=== PATIENT | female | born 1945 | race Caucasian/White ===

== ENCOUNTER 2016-12-21 14:13 | Inpatient (IN) | payer MEDICARE ==
[~2016-12-21] VITALS: Ht 167.6 cm; Wt 70.3 kg
[~2016-12-21 14:13] MED LIST: ACET-2605 PO; ACET-73 PO; ASPI-612 PO; BACL20TA PO; BIOTENE; BISA10SU21 RC; BUSP15TA3 PO; CALC-822 PO; CALMOSEPTINE OINT TOP; CRAN405C PO; DIPH25TA62 PO; DOCU100T PO; DULO60CA45 PO; HYDR-552 PO; HYDR28CR28 TP; LOPE2CAP PO; LORA0.5T PO; MEMA28CA PO; ORAJEL TOP; OXYB10TA4 PO; PHEN-705 PO; POLY17PO4 PO; POLY30DR EACHEYE; PREG100C PO; PREVIDENT; SELENIUM SULFIDE; SERT50TA12 PO; SIMV20TA6 PO; VOLTAREN 1% GEL TOP; [UNRECOGNIZED DRUG - OTHER] TOP
[2016-12-21] MEDS ORDERED: ACETAMINOPHEN 650 MG/20.3 ML LIQUID UDC PO ONE (14:45)
[2016-12-21] MEDS ORDERED: IV NORMAL SALINE 1000 ML BAG IV ONE (14:45)
[2016-12-21] MEDS ORDERED: CEFTRIAXONE 2 G in IV DEXTROSE 5% 100 ML IV ONE (14:45)
[2016-12-21] MEDS ORDERED: CEFTRIAXONE 1 G VIAL ONE (14:53)
[2016-12-21] MEDS ORDERED: ACETAMINOPHEN 650 MG/20.3 ML LIQUID UDC ONE (14:53)
[2016-12-21] MEDS ORDERED: [UNRECOGNIZED DRUG - CODE] PO (14:54)
[2016-12-21] MEDS ORDERED: GLY/85CR TP (14:54)
[2016-12-21] MEDS ORDERED: [UNRECOGNIZED DRUG - SUPPLY] TP (14:54)
[2016-12-21] MEDS ORDERED: HYDR28.316 RC (14:54)
[2016-12-21] MEDS ORDERED: METO25TA6 PO (14:54)
[2016-12-21] MEDS ORDERED: [UNRECOGNIZED DRUG - CODE] TP (14:54)
[2016-12-21] MEDS ORDERED: DICL100G31 TP (14:54)
[2016-12-21] MEDS ORDERED: LACT-47 PO (14:54)
[2016-12-21] MEDS ORDERED: MENT71OI TP (14:54)
[2016-12-21] MEDS ORDERED: [UNRECOGNIZED DRUG - CODE] TP (14:54)
--- NOTE | 2016-12-21 15:04 | NUR ---
LABS/BLOOD CX'S/SALINE LOCK/FLUID BOLUS/EKG COMPLETED. PRESENTLY AT CT SCAN.
[2016-12-21 15:05] LABS: CALCIUM 9.3 mg/dL (8.5-10.1); CARBON DIOXIDE 29 mmol/L (21-32); CHLORIDE 93 mmol/L (98-107); GFR 122 mL/min (>60); GLUCOSE 121 mg/dL (74-106); POTASSIUM 4.1 mmol/L (3.5-5.1); SODIUM SERUM 130 mmol/L (136-145); UREA NITROGEN, BLOOD 7 mg/dL (7-18)
[2016-12-21 15:06] LABS: ETHANOL < 3 MG/DL (0-0)
[2016-12-21 15:07] LABS: BASOPHILS % (AUTO) 0.1 % (0.0-2.0); CREATININE 0.5 mg/dL (0.6-1.3); EOSINOPHILS # (AUTO) 0.3 K/uL (0.0-0.7); EOSINOPHILS % (AUTO) 3.6 % (0.0-7.0); HEMATOCRIT 33.9 % (31.2-41.9); HEMOGLOBIN 11.5 g/dL (10.9-14.3); LYMPHOCYTES # (AUTO) 0.6 K/uL (20.0-40.0); LYMPHOCYTES % (AUTO) 6.5 % (20.5-51.5); MEAN CORPUSCULAR HEMOGLOBIN 29.7 uug (24.7-32.8); MEAN CORPUSCULAR HGB CONC 34 g/dL (32.3-35.6); MONOCYTES # (AUTO) 0.7 K/uL (2.0-10.0); MONOCYTES % (AUTO) 7.9 % (0.0-11.0); NEUTROPHILS # (AUTO) 7.8 K/uL (1.8-8.9); NEUTROPHILS % (AUTO) 81.9 % (38.5-71.5); PLATELET COUNT (AUTO) 220 K/uL (179-408); RED BLOOD CELL COUNT(AUTO) 3.85 MIL/uL (3.63-4.92); RED CELL DISTRIBUTION WIDTH 13.5 % (12.3-17.7); WHITE BLOOD COUNT (AUTO) 9.4 K/uL (3.8-11.8)
[2016-12-21 15:11] LABS: ALANINE AMINOTRANSFERASE 22 U/L (14-59); ALBUMIN 3.6 g/dL (3.4-5.0); ALKALINE PHOSPHATASE 61 U/L (50-136); ASPARTATE AMINOTRANSFERASE 28 U/L (15-37); BILIRUBIN,DIRECT 0.1 mg/dL (0.0-0.2); BILIRUBIN,TOTAL 0.5 mg/dL (0.2-1.0); TOTAL PROTEIN, SERUM 7.6 g/dL (6.4-8.2)
[2016-12-21 15:12] LABS: ACETAMINOPHEN < 2.0 ug/mL (10-30)
[2016-12-21 15:13] LABS: TROPONIN I < 0.017 ng/mL (0.00-0.056)
[2016-12-21 15:18] LABS: LACTIC ACID 0.8 mmol/L (0.4-2.0)
[2016-12-21] MEDS ORDERED: AZITHROMYCIN IV 500 MG in IV DEXTROSE 5% 250 ML IV ONE (15:45)
[2016-12-21] MEDS ORDERED: ALBUTEROL SULFATE 2.5 MG/3 ML NEBU NEB ONE (15:45)
[2016-12-21] MEDS ORDERED: AZITHROMYCIN 500 MG VIAL IV ONE (15:53)
[2016-12-21] MEDS ORDERED: Z GUARD REMEDY PASTE 57 GM TUBE TOP PRN (16:00)
[2016-12-21] MEDS ORDERED: ONDANSETRON 4 MG/2 ML VIAL IV PRN (16:00)
[2016-12-21] MEDS ORDERED: HYDROCORTISONE 2.5 % RECTAL CREAM 28.35 GM TUBE RC PRN (16:00)
[2016-12-21] MEDS ORDERED: ACETAMINOPHEN 325 MG TABLET PO PRN (16:00)
[2016-12-21] MEDS ORDERED: BISACODYL 10 MG SUPP.RECT RC PRN (16:00)
[2016-12-21] MEDS ORDERED: ALBUTEROL SULFATE 2.5 MG/3 ML NEBU ONE (16:03)
[2016-12-21] MEDS ORDERED: POLYVINYL ALCOHOL OPHT DROPS 15 ML BOTTLE EACHEYE PRN (16:15)
--- NOTE | 2016-12-21 16:41 | NUR ---
MSE COMPLETED, SBAR REPORT TO TENZIN LAMB, BELONGINGS LIST/ADMIT ORDER/RESP TX'S,PATRICIA ADAMS, JAQUELINS COMPLETED. PT TO RM 205 VIA ONEL.
--- NOTE | 2016-12-21 16:45 | NUR ---
ADMITTED FROM [facility] VIA ER A 71 YO FEMALE WITH ADM DX OF PNEUMONIA, AMS, SEPSIS ACCOMPANIED BY FAMILY. AWAKE ALERT WITH SOME CONFUSION. SEEN AND EXAMINED BY MANUFACTURING TECHNOLOGIST WITH ORDERS
[2016-12-21] MEDS ORDERED: VITAMIN D3 PO SCH (17:00)
[2016-12-21] MEDS ORDERED: Medication Not On Formulary EA (Docusate Sodium (Dok TABLET) 100 MG) PO SCH (17:00)
[2016-12-21] MEDS ORDERED: [UNRECOGNIZED DRUG - OTHER] PO SCH (17:00)
[2016-12-21] MEDS ORDERED: CALCIUM CITRATE PO SCH (17:00)
[2016-12-21] MEDS: CEFTRIAXONE 1 G in IV DEXTROSE 5% 50 ML IV SCH (17:03)
--- NOTE | 2016-12-21 17:04 | NUR ---
ROCEPHIN GIVEN IN ER
[2016-12-21 17:15] VITALS: BP 89/59
[2016-12-21] MEDS ORDERED: HYDROCORTISONE 1% CREAM 30 GM TUBE TP PRN (17:30)
[2016-12-21] MEDS ORDERED: IPRATROPIUM BROMIDE 0.5 MG/2.5 ML NEBU NEB PRN (17:30)
[2016-12-21] MEDS ORDERED: ALBUTEROL SULFATE 2.5 MG/ 0.5 ML NEBU NEB PRN (17:30)
[2016-12-21] MEDS ORDERED: ALBUTEROL SULFATE 2.5 MG/3 ML NEBU NEB PRN (17:30)
[2016-12-21] MEDS: BACLOFEN 20 MG TABLET PO SCH (17:30)
[2016-12-21] MEDS: DULOXETINE 60 MG CAPSULE.DR PO SCH (17:30)
[2016-12-21] MEDS: PREGABALIN 100 MG CAPSULE PO SCH (17:30)
[2016-12-21] MEDS: busPIRone 10 MG TABLET PO SCH (17:30)
[2016-12-21 18:43] LABS: *BILIRUBIN,URIN NEGATIVE (NEGATIVE); *BLOOD, URINE NEGATIVE (NEGATIVE); *CLARITY,URINE CLOUDY (CLEAR); *COLOR,URINE YELLOW (YELLOW); *KETONES,URINE TRACE (NEGATIVE); *PROTEIN,URINE TRACE (NEGATIVE); LEUKOCYTE ESTERASE ,URINE 1+ (NEGATIVE); NITRITE, URINE NEGATIVE (NEGATIVE); UGLUCOSE NEGATIVE (NEGATIVE)
[2016-12-21 18:53] LABS: RBC,URINE 0-3 /HPF (0-3)
[2016-12-21 18:54] LABS: BACTERIA,URINE RARE /HPF (NONE SEEN); SQUAMOUS EPITHELIAL CELL,UR FEW /HPF (NONE SEEN)
[2016-12-21 18:55] LABS: URINE AMORPHOUS URATE MODERATE /HPF
[2016-12-21 18:59] LABS: *AMPHETAMINE, URINE NEGATIVE (NEGATIVE); *BARBITURATE, URINE NEGATIVE (NEGATIVE); *CANNABINOID, URINE NEGATIVE (NEGATIVE); *COCCAINE, URINE NEGATIVE (NEGATIVE); *OPIATE, URINE POSITIVE (NEGATIVE); *PHENCYCLIDINE SCREEN,URINE NEGATIVE (NEGATIVE)
[2016-12-21 19:00] VITALS: BP 94/59
[2016-12-21] MEDS: IV NS 1000 ML 1,000 ML IV PRN (20:19)
[2016-12-21] MEDS: CALCIUM CITRA-VITAMIN D 315 MG-250 UNITS TABLET PO SCH (20:39)
[2016-12-21] MEDS: SIMVASTATIN 20 MG TABLET PO SCH (20:39)
[2016-12-21] MEDS: DOCUSATE SODIUM 100 MG CAPSULE PO SCH (20:39)
[2016-12-21] MEDS ORDERED: METOPROLOL TARTRATE 25 MG TABLET PO SCH (21:00)
[2016-12-22 00:23] VITALS: BP 113/64
[2016-12-22 04:00] VITALS: BP 109/64
[2016-12-22] MEDS: PANTOPRAZOLE SODIUM 40 MG TABLET.DR PO SCH (06:32)
--- NOTE | 2016-12-22 06:42 | NUR ---
PT IN BED RESTING, SLEPT MOST SHIFT. STILL CONFUSED. LOPRESSOR HELD LAST NIGHT, BP LOW. IVF RUNNING. DVT PUMP ON. VILLAR INTACT DRAINING ROGELIO URINE. SAFETY MAINTAINED. BED ALARAM ON.
[2016-12-22 06:53] LABS: BASOPHILS % (AUTO) 0.4 % (0.0-2.0); EOSINOPHILS # (AUTO) 0.3 K/uL (0.0-0.7); EOSINOPHILS % (AUTO) 3.7 % (0.0-7.0); HEMATOCRIT 27.4 % (31.2-41.9); HEMOGLOBIN 9.4 g/dL (10.9-14.3); LYMPHOCYTES # (AUTO) 0.8 K/uL (20.0-40.0); LYMPHOCYTES % (AUTO) 10.2 % (20.5-51.5); MEAN CORPUSCULAR HEMOGLOBIN 30.5 uug (24.7-32.8); MEAN CORPUSCULAR HGB CONC 34 g/dL (32.3-35.6); MEAN CORPUSCULAR VOLUME 89.2 fL (75.5-95.3); MONOCYTES # (AUTO) 0.5 K/uL (2.0-10.0); MONOCYTES % (AUTO) 6.7 % (0.0-11.0); NEUTROPHILS # (AUTO) 6.2 K/uL (1.8-8.9); PLATELET COUNT (AUTO) 175 K/uL (179-408); RED BLOOD CELL COUNT(AUTO) 3.07 MIL/uL (3.63-4.92); RED CELL DISTRIBUTION WIDTH 13.7 % (12.3-17.7); WHITE BLOOD COUNT (AUTO) 7.8 K/uL (3.8-11.8)
--- NOTE | 2016-12-22 08:00 | NUR ---
RECEIVED PATIENT, PLEASANT/QUIET,MODERATE LEVEL GENERALIZED PAIN, CONTINUE WITH PAIN MANAGEMENT, NO S/S OF RESP. DISTRESS, WILL CONT. PLAN OF CARE.
[2016-12-22 08:11] LABS: THYROID STIMULATING HORMONE 0.348 mIU/mL (0.358-3.740)
[2016-12-22 08:54] LABS: ALANINE AMINOTRANSFERASE 15 U/L (14-59); ALBUMIN 2.7 g/dL (3.4-5.0); ALKALINE PHOSPHATASE 52 U/L (50-136); ASPARTATE AMINOTRANSFERASE 28 U/L (15-37); BILIRUBIN,TOTAL 0.4 mg/dL (0.2-1.0); CALCIUM 8.3 mg/dL (8.5-10.1); CARBON DIOXIDE 25 mmol/L (21-32); CHLORIDE 99 mmol/L (98-107); GFR > 130 mL/min (>60); GLUCOSE 109 mg/dL (74-106); MAGNESIUM 1.6 mg/dL (1.8-2.4); NT-PRO BNP 685 pg/mL (0-125); PHOSPHOROUS 3.2 mg/dL (2.5-4.9); POTASSIUM 3.9 mmol/L (3.5-5.1); SODIUM SERUM 132 mmol/L (136-145); UREA NITROGEN, BLOOD 4 mg/dL (7-18)
[2016-12-22] MEDS ORDERED: OXYBUTYNIN XL 5 MG TABSR PO SCH (09:00)
[2016-12-22 09:05] LABS: CREATININE 0.4 mg/dL (0.6-1.3)
[2016-12-22] MEDS: ASPIRIN 325 MG TABLET PO SCH (09:39)
[2016-12-22] MEDS: MIRALAX 17 GM POWD.PACK PO SCH (09:39)
[2016-12-22] MEDS: DOCUSATE SODIUM 100 MG CAPSULE PO SCH ×2 (09:39→21:12)
[2016-12-22] MEDS: CALCIUM CITRA-VITAMIN D 315 MG-250 UNITS TABLET PO SCH ×2 (09:40→21:14)
[2016-12-22] MEDS: DULOXETINE 60 MG CAPSULE.DR PO SCH ×2 (09:40→16:59)
[2016-12-22] MEDS: MEMANTINE HCL 10 MG TABLET PO SCH ×2 (09:40→21:12)
[2016-12-22] MEDS: PREGABALIN 100 MG CAPSULE PO SCH ×3 (09:40→16:59)
[2016-12-22] MEDS: SERTRALINE HCL 50 MG TABLET PO SCH (09:40)
[2016-12-22] MEDS: busPIRone 10 MG TABLET PO SCH ×2 (09:41→17:17)
[2016-12-22] MEDS: BACLOFEN 20 MG TABLET PO SCH ×3 (09:41→16:59)
[2016-12-22] MEDS: HYDROCODONE/APAP 5-325MG TABLET PO PRN (09:41)
[2016-12-22] MEDS ORDERED: MAGNESIUM SULFATE/D5W 100 ML IV SCH (09:45)
[2016-12-22] MEDS: IV NS 1000 ML 1,000 ML IV PRN (10:23)
[2016-12-22 10:27] LABS: IRON, SERUM 16 ug/dL (50-175)
--- NOTE | 2016-12-22 11:00 | NUR ---
SEEN BY PT, SEE NOTES
[2016-12-22 11:05] LABS: BAND % (MANUAL) 9 % (0-10); EOSINOPHILS % (MANUAL) 5 % (0-8); LYMPHOCYTES % (MANUAL) 13 % (20-40); MONOCYTES % (MANUAL) 8 % (2-10); NEUTROPHILS % (MANUAL) 65 % (42-75); PLATELET ESTIMATE ADEQUATE
[2016-12-22 11:06] LABS: HYPOCHROMASIA 1+; OVALOCYTES 1+
[2016-12-22 11:14] VITALS: BP 108/68
[2016-12-22 11:35] LABS: CHOLESTEROL 93 mg/dL (<200); HDL CHOLESTEROL 40 mg/dL (40-60); TRIGLYCERIDES 45 MG/DL (30-150)
--- NOTE | 2016-12-22 13:00 | NUR ---
SEEN BY HORSE STUD WORKER NOTED LOW MAG, REPLACEMENT GIVEN 1G IV.
[2016-12-22] MEDS: FERROUS SULFATE 325 MG TABEC PO SCH (13:39)
[2016-12-22 15:17] VITALS: BP 118/67
[2016-12-22] MEDS: LEVOFLOXACIN 500 MG/D5W 500 MG in PREMIXED 1 EACH IV SCH (16:59)
--- NOTE | 2016-12-22 17:59 | NUR ---
PATIENT PLEASANTLY CONFUSED, COOPERATIVE WITH MEDS, NO S/S OF SEVERE AGITATION, TALKING INCOHERENTLY, CONT. ATB, NO REACTION NOTED.
[2016-12-22 19:00] VITALS: BP 106/72
--- NOTE | 2016-12-22 19:35 | NUR ---
RECEIVED PT IN BED AWAKE AND ALERT, IN NO ACUTE DISTRESS. NO SOB NOTED/REPORTED, ON ROOM AIR. IV INTACT, IVF INFUSING ORDERED. F/C IN PLACE DRAINING WELL. MADE COMFORTABLE. CALL LIGHT IN REACH. SAFETY MEASURES IN PLACE. WILL IMPLEMENT PLAN OF CARE.
[2016-12-22] MEDS: SIMVASTATIN 20 MG TABLET PO SCH (21:12)
[2016-12-22] MEDS: LACTOBACILLUS RHAMNOSUS GG 1 EACH CAPSULE PO SCH (21:14)
[2016-12-22] MEDS: GUAIFENESIN/DEXTROMETHORPHAN 5 ML UDC PO PRN (21:21)
[2016-12-23] MEDS: GUAIFENESIN/DEXTROMETHORPHAN 5 ML UDC PO PRN ×2 (02:46→20:29)
[2016-12-23 04:00] VITALS: BP 111/65
[2016-12-23] MEDS: IV NS 1000 ML 1,000 ML IV PRN ×2 (04:13→23:47)
[2016-12-23] MEDS: HYDROCODONE/APAP 5-325MG TABLET PO PRN ×2 (04:14→23:50)
[2016-12-23] MEDS: PANTOPRAZOLE SODIUM 40 MG TABLET.DR PO SCH (06:29)
--- NOTE | 2016-12-23 06:49 | NUR ---
PT IN BED RESTING, SLEPT MOST SHIFT. ALERT TO SELF, PLACE AND TIME, BUT REMAINS CONFUSED AT TIMES AND TALKING INCOHERENTLY. ABLE TO MAKE NEEDS KNOWN. PRN NORCO GIVEN X1 THIS AM FOR C/O NECK AND L ARM PAIN. OCCASIONAL COUGHING NOTED, RUBITUSSIN PRN GIVEN WITH SOME RELIEF. IVF INFUSING AT 700CC/HR. DVT PUMPS ON. VILLAR INTACT DRAINING ROGELIO URINE. CALL LIGHT IN REACH AND SAFETY MAINTAINED. Addendum: 12/23/16 at 2116 by GUNNER BARRIOS RN INCORRECT INFO, ACTUALLY IVF INFUSING AT 70 CC/HR.
[2016-12-23 06:55] LABS: EOSINOPHILS # (AUTO) 0.3 K/uL (0.0-0.7); EOSINOPHILS % (AUTO) 4.1 % (0.0-7.0); HEMATOCRIT 26.5 % (37-47); HEMOGLOBIN 9.2 G/DL (12.0-16.0); LYMPHOCYTES # (AUTO) 0.8 K/uL (20.0-40.0); MEAN CORPUSCULAR HEMOGLOBIN 30.6 UUG (27.0-31.0); MEAN CORPUSCULAR HGB CONC 35 g/dL (32.0-37.0); MEAN CORPUSCULAR VOLUME 88.5 FL (81.0-99.0); MONOCYTES # (AUTO) 0.6 K/uL (2.0-10.0); MONOCYTES % (AUTO) 8.6 % (0.0-11.0); NEUTROPHILS # (AUTO) 5.8 K/uL (1.8-8.9); NEUTROPHILS % (AUTO) 76.3 % (38.5-71.5); PLATELET COUNT (AUTO) 197 K/UL (150-450); RED CELL DISTRIBUTION WIDTH 13.3 % (11.5-14.5); WHITE BLOOD COUNT (AUTO) 7.5 K/UL (4.0-11.2)
--- NOTE | 2016-12-23 06:55 | NUR ---
UNABLE TO COLLECT STOOL OB, NO BM PER SHIFT, WILL ENDORSE PERTINENT INFO AND CARE TO INCOMING NURSE.
[2016-12-23 06:58] LABS: ALANINE AMINOTRANSFERASE 13 U/L (14-59); ALBUMIN 2.6 g/dL (3.4-5.0); ALKALINE PHOSPHATASE 51 U/L (50-136); ASPARTATE AMINOTRANSFERASE 16 U/L (15-37); BILIRUBIN,TOTAL 0.4 mg/dL (0.2-1.0); CALCIUM 8.4 mg/dL (8.5-10.1); CARBON DIOXIDE 26 mmol/L (21-32); CHLORIDE 101 mmol/L (98-107); GFR > 130 mL/min (>60); GLUCOSE 109 mg/dL (74-106); MAGNESIUM 1.6 mg/dL (1.8-2.4); PHOSPHOROUS 2.9 mg/dL (2.5-4.9); POTASSIUM 3.7 mmol/L (3.5-5.1); SODIUM SERUM 134 mmol/L (136-145); TOTAL PROTEIN, SERUM 5.9 g/dL (6.4-8.2); UREA NITROGEN, BLOOD 2 mg/dL (7-18)
[2016-12-23 06:59] LABS: CREATININE 0.4 mg/dL (0.6-1.3)
[2016-12-23 07:16] LABS: THYROID STIMULATING HORMONE 0.417 mIU/mL (0.358-3.740)
--- NOTE | 2016-12-23 07:47 | NUR ---
REMAINS VERY CONFUSED, TALKING INCOHERENTLY BUT NO SIGNS OF RESP DISTRESS, NO PAIN. CONTINUE WITH CURRENT TX PLAN
[2016-12-23] MEDS: DULOXETINE 60 MG CAPSULE.DR PO SCH ×2 (08:15→18:02)
[2016-12-23] MEDS: busPIRone 10 MG TABLET PO SCH ×2 (08:15→18:01)
[2016-12-23] MEDS: SERTRALINE HCL 50 MG TABLET PO SCH (08:15)
[2016-12-23] MEDS: MIRALAX 17 GM POWD.PACK PO SCH (08:15)
[2016-12-23] MEDS: ASPIRIN 325 MG TABLET PO SCH (08:16)
[2016-12-23] MEDS: PREGABALIN 100 MG CAPSULE PO SCH ×3 (08:16→18:04)
[2016-12-23] MEDS: DOCUSATE SODIUM 100 MG CAPSULE PO SCH ×2 (08:16→20:28)
[2016-12-23] MEDS: FERROUS SULFATE 325 MG TABEC PO SCH (08:16)
[2016-12-23] MEDS: BACLOFEN 20 MG TABLET PO SCH ×3 (08:16→18:02)
[2016-12-23] MEDS: LACTOBACILLUS RHAMNOSUS GG 1 EACH CAPSULE PO SCH ×2 (08:16→20:29)
[2016-12-23] MEDS: MEMANTINE HCL 10 MG TABLET PO SCH ×2 (08:16→20:29)
[2016-12-23] MEDS: CALCIUM CITRA-VITAMIN D 315 MG-250 UNITS TABLET PO SCH ×2 (08:16→20:28)
[2016-12-23 09:58] LABS: BAND % (MANUAL) 5 % (0-10); LYMPHOCYTES % (MANUAL) 14 % (20-40); MONOCYTES % (MANUAL) 8 % (2-10); NEUTROPHILS % (MANUAL) 73 % (42-75); PLATELET ESTIMATE ADEQUATE
[2016-12-23 09:59] LABS: HYPOCHROMASIA 1+
[2016-12-23] MEDS ORDERED: MAGNESIUM SULFATE/D5W 100 ML IV SCH (10:45)
[2016-12-23 11:39] VITALS: BP 105/60
--- NOTE | 2016-12-23 12:00 | NUR ---
no acute change
[2016-12-23] MEDS ORDERED: MORPHINE SULFATE 2 MG/1 ML DISP.SYRIN IV PRN (14:15)
[2016-12-23] MEDS: CEFTRIAXONE 1 G in IV DEXTROSE 5% 50 ML IV SCH (14:53)
[2016-12-23 15:08] VITALS: BP 130/72
[2016-12-23] MEDS: LEVOFLOXACIN 500 MG/D5W 500 MG in PREMIXED 1 EACH IV SCH (15:45)
--- NOTE | 2016-12-23 18:29 | NUR ---
CONTINUE ANTIBIOTIC MANAGEMENT. NO SOB. CONTINUE WITH PAIN MANAGEMENT.
[2016-12-23 20:00] VITALS: BP 123/72
[2016-12-23] MEDS: SIMVASTATIN 20 MG TABLET PO SCH (20:29)
--- NOTE | 2016-12-24 05:28 | NUR ---
PATIENT IN BED RESTING, SLEEPING ON AND OFF. CONTINUES WITH CIRCUMSTANTIAL SPEECH. ABLE TO MAKE NEEDS KNOWN. VS STABLE. C/O CONSTIPATION, PRN DULCOLAX GIVEN ORDERED, EFFECTIVE, X2 BMs AT THIS TIME. STOOL OB COLLECTED, SENT TO LAB. KEPT CLEAN AND DRY. ALL NEEDS ATTENDED. CALL LIGHT IN REACH. SAFETY MAINTAINED.
[2016-12-24 06:02] VITALS: BP 134/86
[2016-12-24] MEDS: PANTOPRAZOLE SODIUM 40 MG TABLET.DR PO SCH (06:29)
[2016-12-24 07:07] LABS: ALBUMIN 2.5 g/dL (3.4-5.0); BILIRUBIN,TOTAL 0.4 mg/dL (0.2-1.0); CALCIUM 8.5 mg/dL (8.5-10.1); CREATININE 0.6 mg/dL (0.6-1.3); MAGNESIUM 1.5 mg/dL (1.8-2.4); POTASSIUM 3.8 mmol/L (3.5-5.1); URIC ACID 1.3 mg/dL (2.6-6.0)
[2016-12-24] MEDS: PREGABALIN 100 MG CAPSULE PO SCH ×3 (08:20→16:24)
[2016-12-24] MEDS: FERROUS SULFATE 325 MG TABEC PO SCH (08:20)
[2016-12-24] MEDS: BACLOFEN 20 MG TABLET PO SCH ×3 (08:20→16:24)
[2016-12-24] MEDS: ASPIRIN 325 MG TABLET PO SCH (08:20)
[2016-12-24] MEDS: DULOXETINE 60 MG CAPSULE.DR PO SCH ×2 (08:20→16:24)
[2016-12-24] MEDS: DOCUSATE SODIUM 100 MG CAPSULE PO SCH ×2 (08:21→21:01)
[2016-12-24] MEDS: LACTOBACILLUS RHAMNOSUS GG 1 EACH CAPSULE PO SCH ×2 (08:21→21:01)
[2016-12-24] MEDS: MEMANTINE HCL 10 MG TABLET PO SCH ×2 (08:21→21:02)
[2016-12-24] MEDS: SERTRALINE HCL 50 MG TABLET PO SCH (08:21)
[2016-12-24] MEDS: CALCIUM CITRA-VITAMIN D 315 MG-250 UNITS TABLET PO SCH ×2 (08:21→21:01)
[2016-12-24] MEDS: busPIRone 10 MG TABLET PO SCH ×2 (08:21→16:24)
[2016-12-24] MEDS: MIRALAX 17 GM POWD.PACK PO SCH (08:22)
[2016-12-24] MEDS: MAGNESIUM SULFATE/D5W 100 ML IV SCH ×2 (10:09→10:49)
[2016-12-24 11:09] LABS: *OCCULT BLOOD STOOL NEGATIVE (NEGATIVE)
[2016-12-24 11:55] VITALS: BP 113/67
[2016-12-24] MEDS: IPRATROPIUM BROMIDE 0.5 MG/2.5 ML NEBU NEB SCH ×2 (13:30→19:36)
[2016-12-24] MEDS: ALBUTEROL SULFATE 2.5 MG/3 ML NEBU NEB SCH ×2 (13:30→19:36)
[2016-12-24 13:36] LABS: BASOPHILS % (AUTO) 0.4 % (0.0-2.0); EOSINOPHILS # (AUTO) 0.5 K/uL (0.0-0.7); EOSINOPHILS % (AUTO) 7.5 % (0.0-7.0); HEMATOCRIT 28.6 % (37-47); HEMOGLOBIN 9.8 G/DL (12.0-16.0); LYMPHOCYTES # (AUTO) 0.8 K/uL (20.0-40.0); MEAN CORPUSCULAR HEMOGLOBIN 30.3 UUG (27.0-31.0); MEAN CORPUSCULAR HGB CONC 34 g/dL (32.0-37.0); MEAN CORPUSCULAR VOLUME 88.8 FL (81.0-99.0); MONOCYTES # (AUTO) 0.5 K/uL (2.0-10.0); MONOCYTES % (AUTO) 6.5 % (0.0-11.0); NEUTROPHILS # (AUTO) 5.2 K/uL (1.8-8.9); NEUTROPHILS % (AUTO) 73.6 % (38.5-71.5); PLATELET COUNT (AUTO) 247 K/UL (150-450); RED BLOOD CELL COUNT(AUTO) 3.22 MIL/UL (4.2-5.4); RED CELL DISTRIBUTION WIDTH 13.4 % (11.5-14.5)
[2016-12-24 13:54] LABS: BAND % (MANUAL) 10 % (0-10); EOSINOPHILS % (MANUAL) 13 % (0-8); LYMPHOCYTES % (MANUAL) 15 % (20-40); MONOCYTES % (MANUAL) 8 % (2-10); NEUTROPHILS % (MANUAL) 54 % (42-75)
[2016-12-24 13:55] LABS: PLATELET ESTIMATE ADEQUATE
[2016-12-24] MEDS: CEFTRIAXONE 1 G in IV DEXTROSE 5% 50 ML IV SCH (15:12)
--- NOTE | 2016-12-24 15:46 | NUR ---
Discharge Planning: The patient will be discharged to [facility] [ ; [address] [place] [address]] once medically cleared. Had been in contact with her daughter, Augustina Ramos [ ], via [facility] Staff. Augustina is currently out of town because her father [patient's ex-] . She requested for the patient to be discharged to [facility] because she lives near the facility and knows some people who work there. Spoke with marshall Francois from [facility] [ ], and she confirmed that they will admit the patient once stable.
[2016-12-24 15:48] VITALS: BP 119/77
[2016-12-24] MEDS: LEVOFLOXACIN 500 MG TABLET PO SCH (16:19)
[2016-12-24 19:00] VITALS: BP 121/81
--- NOTE | 2016-12-24 19:10 | NUR ---
PATIENT ALERT ORIENTED, NO SOB NO CHEST PAIN, VILLAR CATH PATENT DRAINING WITH YELLOW COLOR URINE IN MODERATE AMOUNT, CALL LIGHT WITHIN REACH.
[2016-12-24 20:15] VITALS: BP 121/81
[2016-12-24] MEDS: SIMVASTATIN 20 MG TABLET PO SCH (21:02)
[2016-12-24] MEDS: GUAIFENESIN/DEXTROMETHORPHAN 5 ML UDC PO PRN (21:41)
[2016-12-25] MEDS: IPRATROPIUM BROMIDE 0.5 MG/2.5 ML NEBU NEB SCH ×3 (01:25→14:28)
[2016-12-25] MEDS: ALBUTEROL SULFATE 2.5 MG/3 ML NEBU NEB SCH ×3 (01:25→14:28)
--- NOTE | 2016-12-25 01:26 | NUR ---
HHN TX NOT GIVEN, PT RESTING COMFORTABLY, NO SOB NOTED, PT SLEEPING
[2016-12-25 04:00] VITALS: BP 139/89
--- NOTE | 2016-12-25 05:31 | NUR ---
PATIENT AWAKE BUT FORGETFUL NO SOB NO CHEST PAIN, SLEPT MOST OF THE NIGHT. VILLAR CATH PATENT YELLOW COLOR URINE.
[2016-12-25] MEDS: PANTOPRAZOLE SODIUM 40 MG TABLET.DR PO SCH (06:02)
[2016-12-25] MEDS: GUAIFENESIN/DEXTROMETHORPHAN 5 ML UDC PO PRN (06:13)
[2016-12-25 07:10] LABS: ALBUMIN 2.7 g/dL (3.4-5.0); BILIRUBIN,TOTAL 0.3 mg/dL (0.2-1.0); CALCIUM 8.9 mg/dL (8.5-10.1); MAGNESIUM 1.7 mg/dL (1.8-2.4); PHOSPHOROUS 3.2 mg/dL (2.5-4.9); POTASSIUM 3.7 mmol/L (3.5-5.1); TOTAL PROTEIN, SERUM 6.5 g/dL (6.4-8.2)
[2016-12-25 07:12] LABS: CREATININE 0.5 mg/dL (0.6-1.3)
[2016-12-25 07:24] LABS: BASOPHILS % (AUTO) 0.1 % (0.0-2.0); EOSINOPHILS # (AUTO) 0.5 K/uL (0.0-0.7); EOSINOPHILS % (AUTO) 5.7 % (0.0-7.0); HEMATOCRIT 30.9 % (37-47); HEMOGLOBIN 10.5 G/DL (12.0-16.0); LYMPHOCYTES # (AUTO) 1.1 K/uL (20.0-40.0); LYMPHOCYTES % (AUTO) 12.3 % (20.5-51.5); MEAN CORPUSCULAR HEMOGLOBIN 30.6 UUG (27.0-31.0); MEAN CORPUSCULAR HGB CONC 34 g/dL (32.0-37.0); MEAN CORPUSCULAR VOLUME 90.2 FL (81.0-99.0); MONOCYTES # (AUTO) 0.7 K/uL (2.0-10.0); MONOCYTES % (AUTO) 8.2 % (0.0-11.0); NEUTROPHILS # (AUTO) 6.3 K/uL (1.8-8.9); NEUTROPHILS % (AUTO) 73.7 % (38.5-71.5); PLATELET COUNT (AUTO) 253 K/UL (150-450); RED BLOOD CELL COUNT(AUTO) 3.43 MIL/UL (4.2-5.4); WHITE BLOOD COUNT (AUTO) 8.6 K/UL (4.0-11.2)
[2016-12-25] MEDS: SERTRALINE HCL 50 MG TABLET PO SCH (09:40)
[2016-12-25] MEDS: DOCUSATE SODIUM 100 MG CAPSULE PO SCH (09:41)
[2016-12-25] MEDS: LACTOBACILLUS RHAMNOSUS GG 1 EACH CAPSULE PO SCH (09:42)
[2016-12-25] MEDS: PREGABALIN 100 MG CAPSULE PO SCH ×2 (09:42→12:35)
[2016-12-25] MEDS: BACLOFEN 20 MG TABLET PO SCH ×2 (09:42→12:35)
[2016-12-25] MEDS: MEMANTINE HCL 10 MG TABLET PO SCH (09:42)
[2016-12-25] MEDS: DULOXETINE 60 MG CAPSULE.DR PO SCH (09:43)
[2016-12-25] MEDS: ASPIRIN 325 MG TABLET PO SCH (09:43)
[2016-12-25] MEDS: CALCIUM CITRA-VITAMIN D 315 MG-250 UNITS TABLET PO SCH (09:43)
[2016-12-25] MEDS: MIRALAX 17 GM POWD.PACK PO SCH (09:44)
[2016-12-25] MEDS: FERROUS SULFATE 325 MG TABEC PO SCH (09:44)
[2016-12-25] MEDS: busPIRone 10 MG TABLET PO SCH (09:47)
[2016-12-25] MEDS ORDERED: MAGNESIUM SULFATE/D5W 100 ML IV SCH (10:00)
[2016-12-25] MEDS ORDERED: BISA10SU12 RC (10:14)
[2016-12-25] MEDS ORDERED: ASPI-612 PO (10:14)
[2016-12-25] MEDS ORDERED: Sertraline Hcl PO (10:14)
[2016-12-25] MEDS ORDERED: PANT40TA2 PO (10:14)
[2016-12-25] MEDS ORDERED: FERR325T28 PO (10:14)
[2016-12-25] MEDS ORDERED: Duloxetine Hcl PO (10:14)
[2016-12-25] MEDS ORDERED: POLY17PO4 PO (10:14)
[2016-12-25] MEDS ORDERED: ALBU2.5V7 NEB (10:14)
[2016-12-25] MEDS ORDERED: PREG100C PO (10:14)
[2016-12-25] MEDS ORDERED: CALCIUM CITRATE PO (10:14)
[2016-12-25] MEDS ORDERED: Acetaminophen PO (10:14)
[2016-12-25] MEDS ORDERED: SIMV20TA6 PO (10:14)
[2016-12-25] MEDS ORDERED: MEMA10TA PO (10:14)
[2016-12-25] MEDS ORDERED: HYDR-3326 PO (10:14)
[2016-12-25] MEDS ORDERED: Baclofen PO (10:14)
[2016-12-25] MEDS ORDERED: VITAMIN D3 PO (10:14)
[2016-12-25] MEDS ORDERED: Docusate Sodium PO (10:14)
[2016-12-25] MEDS ORDERED: ALBU2.5V13 NEB (10:14)
[2016-12-25] MEDS ORDERED: IPRA0.2S6 NEB ×2 (10:14)
[2016-12-25] MEDS ORDERED: LEVO500T15 PO (10:14)
[2016-12-25] MEDS ORDERED: LACT1CAP57 PO (10:14)
[2016-12-25] MEDS ORDERED: Guaifenesin/D-Methorphan Hb PO (10:14)
[2016-12-25] MEDS ORDERED: Buspirone Hcl PO (10:14)
[2016-12-25 12:00] VITALS: BP 109/70
[2016-12-25] MEDS: CEFTRIAXONE 1 G in IV DEXTROSE 5% 50 ML IV SCH (15:00)
[2016-12-25 15:06] VITALS: BP 134/80
--- NOTE | 2016-12-25 15:26 | NUR ---
PATIENT BEEN DISCHARGE HOME IN SAFE AND STABLE CONDITION TO [facility]. NO S/S OF DISTRESS NOTED DURING MY SHIFT. REPORT WAS GIVEN TO KRYSTIAN. AMBULANCE WILL BE HERE TO HEARING AID ASSISTANT PATIENT AT [phone]. PATIENT STATED HER NAME, TIME AND LOCATION, SHE HAVE BEEN COOPERATIVE WITH HER TREATMENT, BUT SEEM FORGETFUL. DISCHARGE WERE EXPLAINED, AND SIGNED BY PATIENT. BELONGINGS WERE CHECKED BY MARIS AGUILAR. F/C TAKEN OUT, WELL ID BAND AND IV CATHETER. SAFETY AND COMFORT PROVIDED BY STAFF. WILL CONTINUE MONITORING UNTIL AMBULANCE GETS HERE.
[2016-12-25] MEDS: LEVOFLOXACIN 500 MG TABLET PO SCH (16:00)
--- NOTE | 2016-12-25 16:28 | NUR ---
AMBULANCE CAME TO PICK PATIENT UP, DURING GIVEN REPORT. 1553 TELEPHONE ANSWERER REPORTED THAT PATIENT WAS NOT RESPONDING AND SEEM SLEEPING DEEPLY. TOOK BP AT 1556 103/57 HR 85 O2 SAT 92, AND NOTIFIED CHARGED NURSE STAT. ASSESSED PATIENT, SHE CONTINUED NO RESPONDING. BS 117 WAS TAKEN AT 1605. CALLED RAPID RESPONSE. RT LEXX CAME TO ASSESS PATIENT. AFTER CONTINUE ASSESSING AND CALLING HER NAME, PATIENT WOKE UP BABBLING. SHE CAME BACK TO HER NORMAL BASELINE. ANOTHER SET OF VITALS WERE TAKEN AT 1617 BP 126/72 O2 SAT 96%. RR WAS CLEAR. PATIENT WAS ALERT AND VITALS WERE STABLE WHEN SHE WAS TAKEN BY AMBULANCE.
== END 2016-12-25 16:28 | DRG 871 ==
LOC: ER 14:14 → TELE-TD 15:55 → TELE 15:59 → MED 12-22 13:15
PROVIDERS: ADMIT Internal Medicine; ATTEND Internal Medicine
DX: A41.9 Sepsis, unspecified organism (principal); J18.9 Pneumonia, unspecified organism; G92 Toxic encephalopathy; F05 Delirium due to known physiological condition; D68.9 Coagulation defect, unspecified; E44.0 Moderate protein-calorie malnutrition; F11.20 Opioid dependence, uncomplicated; N39.0 Urinary tract infection, site not specified; E22.2 Syndrome of inappropriate secretion of antidiuretic hormone; I69.854 Hemiplegia and hemiparesis following other cerebrovascular disease affecting left non-dominant side; G89.4 Chronic pain syndrome; E78.5 Hyperlipidemia, unspecified; E03.9 Hypothyroidism, unspecified; F01.50 Vascular dementia, unspecified severity, without behavioral disturbance, psychotic disturbance, mood disturbance, and anxiety; F10.10 Alcohol abuse, uncomplicated; G93.89 Other specified disorders of brain; D69.6 Thrombocytopenia, unspecified; E83.42 Hypomagnesemia; Z87.440 Personal history of urinary (tract) infections; R73.9 Hyperglycemia, unspecified; M85.812 Other specified disorders of bone density and structure, left shoulder; R33.9 Retention of urine, unspecified; I36.1 Nonrheumatic tricuspid (valve) insufficiency; I34.0 Nonrheumatic mitral (valve) insufficiency; M12.812 Other specific arthropathies, not elsewhere classified, left shoulder; R93.8 Abnormal findings on diagnostic imaging of other specified body structures; D63.8 Anemia in other chronic diseases classified elsewhere; R93.1 Abnormal findings on diagnostic imaging of heart and coronary circulation; I10 Essential (primary) hypertension; M25.412 Effusion, left shoulder; Z68.25 Body mass index [BMI] 25.0-25.9, adult
CPT/HCPCS: 36415; 70030-TC; 70450; 71010; 73030; 73200; 80307; 83550; 83605; 83735; 84100; 84443; 84481; 84550; 85025; 85730; 87040; 87086; 93005; 93307; 94640; 97001; 97110; 97530; A4663; G0480-TC; G6040-TC; J0456; J0696; J1956; J3475; J3490; J3590; J7030; J7060

== ENCOUNTER 2017-08-18 17:03 | Inpatient (IN) | payer MEDICARE ==
[~2017-08-18] VITALS: Ht 162.6 cm; Wt 62.1 kg
[~2017-08-18 17:03] MED LIST changes: -ACET-2605 PO; -ACET-73 PO; +ALBU2.5V13 NEB; +ALBU2.5V7 NEB; +Acetaminophen PO; -BACL20TA PO; -BIOTENE; +BISA10SU12 RC; -BISA10SU21 RC; -BUSP15TA3 PO; +Baclofen PO; +Buspirone Hcl PO; -CALC-822 PO; +CALCIUM CITRATE PO; -CALMOSEPTINE OINT TOP; -CRAN405C PO; -DIPH25TA62 PO; -DOCU100T PO; -DULO60CA45 PO; +Docusate Sodium PO; +Duloxetine Hcl PO; +FERR325T28 PO; +Guaifenesin/D-Methorphan Hb PO; +HYDR-3326 PO; -HYDR-552 PO; -HYDR28CR28 TP; +IPRA0.2S6 NEB; +LACT1CAP57 PO; +LEVO500T2 PO; -LOPE2CAP PO; -LORA0.5T PO; +MEMA10TA PO; -MEMA28CA PO; +METO25TA6 PO; -ORAJEL TOP; -OXYB10TA4 PO; +PANT40TA2 PO; -PHEN-705 PO; -PREVIDENT; -SELENIUM SULFIDE; -SERT50TA12 PO; +Sertraline Hcl PO; +VITAMIN D3 PO; -VOLTAREN 1% GEL TOP; -[UNRECOGNIZED DRUG - OTHER] TOP
--- NOTE | 2017-08-18 19:15 | NUR ---
Pt to room via w/c here for further eval for increased confusion. No obvious signs of trauma, no recent illnesses per facility. Pt resting in position of comfort for self, awaiting further eval. Caregiver at bedside.
--- NOTE | 2017-08-18 20:30 | NUR ---
Pt repeatedly asking for a phone so she can dial "411", caregiver with pt able to redirect and distract pt. Pt calm and cooperative.
[2017-08-18 21:22] LABS: BASOPHILS % (AUTO) 0.3 % (0.0-2.0); EOSINOPHILS # (AUTO) 0.3 K/uL (0.0-0.7); HEMATOCRIT 33.5 % (31.2-41.9); HEMOGLOBIN 11.3 g/dL (10.9-14.3); LYMPHOCYTES % (AUTO) 11.4 % (20.5-51.5); MEAN CORPUSCULAR HEMOGLOBIN 30.8 uug (24.7-32.8); MEAN CORPUSCULAR HGB CONC 34 g/dL (32.3-35.6); MEAN CORPUSCULAR VOLUME 91.3 fL (75.5-95.3); MONOCYTES # (AUTO) 0.7 K/uL (2.0-10.0); MONOCYTES % (AUTO) 8.2 % (0.0-11.0); NEUTROPHILS # (AUTO) 6.8 K/uL (1.8-8.9); NEUTROPHILS % (AUTO) 77.1 % (38.5-71.5); PLATELET COUNT (AUTO) 236 K/uL (179-408); RED BLOOD CELL COUNT(AUTO) 3.66 MIL/uL (3.63-4.92); WHITE BLOOD COUNT (AUTO) 8.8 K/uL (3.8-11.8)
[2017-08-18 21:25] LABS: CARBON DIOXIDE 28 mmol/L (21-32); CHLORIDE 102 mmol/L (98-107); CREATININE 0.6 mg/dL (0.6-1.3); GLUCOSE 107 mg/dL (74-106); UREA NITROGEN, BLOOD 14 mg/dL (7-18)
[2017-08-18 21:31] LABS: ALANINE AMINOTRANSFERASE 17 U/L (14-59); ALKALINE PHOSPHATASE 49 U/L (50-136); ASPARTATE AMINOTRANSFERASE 20 U/L (15-37); BILIRUBIN,DIRECT 0.1 mg/dL (0.0-0.2); BILIRUBIN,TOTAL 0.6 mg/dL (0.2-1.0)
[2017-08-18 21:33] LABS: ACETAMINOPHEN < 2.0 ug/mL (10-30)
[2017-08-18 21:34] LABS: ETHANOL < 3 MG/DL (0-0)
--- NOTE | 2017-08-18 21:40 | NUR ---
Pt resting in position of comfort for self in her w/c watching TV with caregiver.
[2017-08-18 22:00] LABS: THYROID STIMULATING HORMONE 0.554 mIU/mL (0.358-3.740)
[2017-08-18] MEDS ORDERED: diphenhydrAMINE 50 MG/1 ML VIAL IM ONE (22:30)
[2017-08-18] MEDS ORDERED: HALOPERIDOL LACTATE 5 MG/1 ML VIAL IM ONE (22:30)
[2017-08-18] MEDS ORDERED: LORAZEPAM 2 MG/1 ML VIAL IM ONE (22:30)
[2017-08-18] MEDS ORDERED: diphenhydrAMINE 50 MG/1 ML VIAL ONE (22:59)
[2017-08-18] MEDS ORDERED: HALOPERIDOL LACTATE 5 MG/1 ML VIAL ONE (23:00)
[2017-08-18] MEDS ORDERED: LORAZEPAM 2 MG/1 ML VIAL ONE (23:00)
--- NOTE | 2017-08-18 23:04 | NUR ---
Terence with crisis team at bedside for evaluation
--- NOTE | 2017-08-18 23:20 | NUR ---
Pt placed on a 5150 for gravely disabled. Admission to MHU pending.
--- NOTE | 2017-08-19 00:31 | NUR ---
Report called to ADONIS Sanderson. Preparing to transfer pt to the floor.
[2017-08-19] MEDS ORDERED: MAGNESIUM HYDROXIDE 30 ML LIQUID UDC PO PRN (01:15)
[2017-08-19] MEDS ORDERED: LORAZEPAM 0.5 MG TABLET PO PRN (01:15)
[2017-08-19] MEDS ORDERED: MAG HYDROX/AL HYDROX/SIMETH 30 ML LIQUID UDC PO PRN (01:15)
[2017-08-19] MEDS ORDERED: DICL100G16 TP (01:19)
[2017-08-19] MEDS ORDERED: BACL20TA PO (01:19)
[2017-08-19] MEDS ORDERED: GLY/85CR TP (01:19)
[2017-08-19] MEDS ORDERED: MENT71OI TP ×2 (01:19→01:20)
[2017-08-19] MEDS ORDERED: CHLO473M2 MM (01:19)
[2017-08-19] MEDS ORDERED: CALC-36 PO (01:19)
[2017-08-19] MEDS ORDERED: CIPR500T5 PO (01:19)
[2017-08-19] MEDS ORDERED: BUSP30TA2 PO (01:19)
[2017-08-19] MEDS ORDERED: ACET-73 PO ×2 (01:19→01:20)
[2017-08-19] MEDS ORDERED: PHEN-894 PO (01:20)
[2017-08-19] MEDS ORDERED: [UNRECOGNIZED DRUG - SUPPLY] TP (01:20)
[2017-08-19] MEDS ORDERED: [UNRECOGNIZED DRUG - OTHER] TP (01:20)
[2017-08-19] MEDS ORDERED: CARB15DR2 EACHEYE (01:20)
[2017-08-19] MEDS ORDERED: HYDR-3974 PO (01:20)
[2017-08-19] MEDS ORDERED: HYDR30CR77 RC (01:20)
[2017-08-19] MEDS ORDERED: EUCA50OI5 TP (01:20)
[2017-08-19] MEDS ORDERED: SELE325S2 TP (01:20)
[2017-08-19] MEDS ORDERED: ORAJEL TP (01:20)
[2017-08-19] MEDS ORDERED: POLY17PO3 PO (01:20)
[2017-08-19] MEDS ORDERED: OXYB10TA4 PO (01:20)
[2017-08-19] MEDS ORDERED: DOCU100C36 PO (01:20)
[2017-08-19] MEDS ORDERED: SERT50TA12 PO (01:20)
[2017-08-19] MEDS ORDERED: [UNRECOGNIZED DRUG - CODE] MC (01:20)
[2017-08-19] MEDS ORDERED: MENT396L TP (01:20)
[2017-08-19] MEDS ORDERED: METO25TA6 PO (01:20)
[2017-08-19] MEDS ORDERED: PETR18JE3 TP (01:20)
[2017-08-19] MEDS ORDERED: COCO120O MC (01:20)
[2017-08-19] MEDS ORDERED: SIMV20TA6 PO (01:20)
[2017-08-19] MEDS ORDERED: DIPH25CA6 PO (01:20)
[2017-08-19] MEDS ORDERED: [UNRECOGNIZED DRUG - CODE] TP (01:20)
[2017-08-19] MEDS ORDERED: GLUC10007 MM (01:20)
[2017-08-19] MEDS ORDERED: PREG75CA PO ×2 (01:20)
[2017-08-19] MEDS ORDERED: SODI56GE DT (01:20)
[2017-08-19] MEDS ORDERED: LOPE2CAP PO (01:20)
[2017-08-19] MEDS ORDERED: LOPE2TAB25 PO (01:20)
[2017-08-19] MEDS ORDERED: CRAN405C PO (01:20)
[2017-08-19] MEDS ORDERED: MEMA28CA PO (01:20)
[2017-08-19] MEDS ORDERED: DULO60CA45 PO (01:20)
[2017-08-19] MEDS ORDERED: IBUP-1957 PO (01:20)
[2017-08-19] MEDS ORDERED: HYDR-552 PO (01:20)
[2017-08-19] MEDS ORDERED: BISA10SU8 RC (01:20)
[2017-08-19 01:30] VITALS: BP 114/71
--- NOTE | 2017-08-19 01:30 | NUR ---
ADMITTED 71 YEAR OLD FEMALE TO THE UNIT ON 5150 FOR GD, PER 72 HOUR HOLD, PT CAME INTO [facility] WITH INCREASED CONFUSION, CONSTANTLY ASKING FOR THE PHONE TO CALL [phone], EASILY AGITATED IN ER REQUIRING ADMINISTRATION OF HALDOL, ATIVAN, BENADRYL INJECTION, UPON ARRIVAL TO THE UNIT, PT WAS SLEEPING, UNABLE TO ASSESS BEHAVIOR AND MOOD, WILL CONTINUE TO MONITOR CLOSELY.
[2017-08-19 07:33] VITALS: BP 130/75
--- NOTE | 2017-08-19 08:57 | NUR ---
Firearms Report: Seed Corn Manager Production completed and submitted [facility] Firearms Report on 08/19/17.
[2017-08-19] MEDS ORDERED: POLYVINYL ALCOHOL OPHT DROPS 15 ML BOTTLE EACHEYE PRN (10:30)
[2017-08-19] MEDS ORDERED: ALBUTEROL SULFATE 2.5 MG/ 0.5 ML NEBU NEB PRN (10:30)
[2017-08-19] MEDS ORDERED: HYDROCORTISONE 2.5 % RECTAL CREAM 28.35 GM TUBE RC PRN (10:30)
[2017-08-19] MEDS ORDERED: BISACODYL 10 MG SUPP.RECT RC PRN (10:30)
[2017-08-19] MEDS ORDERED: IPRATROPIUM BROMIDE 0.5 MG/2.5 ML NEBU NEB PRN (10:30)
[2017-08-19] MEDS: DULOXETINE 60 MG CAPSULE.DR PO SCH ×2 (12:48→17:27)
[2017-08-19] MEDS: SERTRALINE HCL 50 MG TABLET PO SCH (12:49)
[2017-08-19] MEDS: busPIRone 10 MG TABLET PO SCH ×2 (12:50→17:27)
[2017-08-19] MEDS: BACLOFEN 20 MG TABLET PO SCH ×2 (12:55→17:22)
[2017-08-19] MEDS ORDERED: PREGABALIN 100 MG CAPSULE PO SCH (13:00)
[2017-08-19 15:00] VITALS: BP 113/80
--- NOTE | 2017-08-19 15:27 | NUR ---
Initial Discharge Instructions: Pt currently resides at [facility] [[address] [place] [address]; [phone]] and would like to return there. Produce Shipper attempted to call pt's daughters Augustina Wei ([phone]) and Jennifer Wei ([phone]) and left messages for both to discuss discharge planning. Spoke with Consuelo at [facility] ([phone]) who are willing to accept pt back when she is ready for discharge. SW will speak with pt, family, and MD regarding appropriate discharge plans. SW will form a safe and proper discharge.
[2017-08-19] MEDS: CHLORHEXIDINE GLUCONATE 15 ML MOUTHWASH MM SCH (17:22)
[2017-08-19] MEDS: DOCUSATE SODIUM 100 MG CAPSULE PO SCH (17:22)
--- NOTE | 2017-08-19 18:20 | NUR ---
pt remains confused and needy on unit needing frequent redirection, pt pulls off hand brace all shift left side weakness and is contracted. ua collected and taken to lab and patient responding to internal stimili. .
[2017-08-19 19:20] LABS: *BLOOD, URINE NEGATIVE (NEGATIVE); *CLARITY,URINE CLEAR (CLEAR); *COLOR,URINE YELLOW (YELLOW); *KETONES,URINE 1+ (NEGATIVE); *PROTEIN,URINE NEGATIVE (NEGATIVE); *UROBILINOGEN,URINE 0.2 E.U./dl (NORMAL); LEUKOCYTE ESTERASE ,URINE 1+ (NEGATIVE); NITRITE, URINE NEGATIVE (NEGATIVE); UGLUCOSE NEGATIVE (NEGATIVE)
[2017-08-19 19:22] LABS: *BILIRUBIN,URIN 1+ (NEGATIVE)
[2017-08-19 19:25] LABS: BACTERIA,URINE FEW /HPF (NONE SEEN); CALCIUM OXALATE CRYSTALS,UR PRESENT /HPF (NONE SEEN); SQUAMOUS EPITHELIAL CELL,UR FEW /HPF (NONE SEEN); WBC,URINE 20-50 /HPF (0-3)
[2017-08-19 20:14] VITALS: BP 141/75
[2017-08-19] MEDS: MEMANTINE HCL 10 MG TABLET PO SCH (20:58)
[2017-08-19] MEDS: ARIPIPRAZOLE 2 MG TABLET PO SCH (20:58)
[2017-08-19] MEDS: PREGABALIN 25 MG CAPSULE PO SCH (20:58)
[2017-08-19] MEDS: SIMVASTATIN 20 MG TABLET PO SCH (20:59)
[2017-08-19] MEDS: METOPROLOL TARTRATE 25 MG TABLET PO SCH (20:59)
[2017-08-19] MEDS: NITROFURANTOIN/NITROFURAN MAC 100 MG CAPSULE PO SCH (22:30)
[2017-08-19] MEDS ORDERED: NITROFURANTOIN/NITROFURAN MAC 100 MG CAPSULE ONE (22:45)
[2017-08-20] MEDS: PANTOPRAZOLE SODIUM 40 MG TABLET.DR PO SCH (06:06)
[2017-08-20 07:30] VITALS: BP 157/97
[2017-08-20] MEDS: busPIRone 10 MG TABLET PO SCH ×2 (09:14→17:17)
[2017-08-20] MEDS: DOCUSATE SODIUM 100 MG CAPSULE PO SCH ×2 (09:14→17:00)
[2017-08-20] MEDS: PREGABALIN 25 MG CAPSULE PO SCH ×2 (09:15→21:35)
[2017-08-20] MEDS: MEMANTINE HCL 10 MG TABLET PO SCH ×2 (09:15→21:34)
[2017-08-20] MEDS: ASPIRIN 325 MG TABLET PO SCH (09:15)
[2017-08-20] MEDS: NITROFURANTOIN/NITROFURAN MAC 100 MG CAPSULE PO SCH ×2 (09:15→21:34)
[2017-08-20] MEDS: SERTRALINE HCL 50 MG TABLET PO SCH (09:15)
[2017-08-20] MEDS: FERROUS SULFATE 325 MG TABEC PO SCH (09:16)
[2017-08-20] MEDS: METOPROLOL TARTRATE 25 MG TABLET PO SCH ×2 (09:16→21:36)
[2017-08-20] MEDS: DULOXETINE 60 MG CAPSULE.DR PO SCH ×2 (09:17→17:17)
[2017-08-20] MEDS: OXYBUTYNIN XL 5 MG TABSR PO SCH (09:17)
[2017-08-20] MEDS: BACLOFEN 20 MG TABLET PO SCH ×3 (09:17→17:17)
[2017-08-20] MEDS: MIRALAX 17 GM POWD.PACK PO SCH (09:27)
[2017-08-20] MEDS: CHLORHEXIDINE GLUCONATE 15 ML MOUTHWASH MM SCH ×2 (09:48→17:17)
[2017-08-20] MEDS ORDERED: hydrALAZINE HCL 25 MG TABLET PO PRN (14:30)
[2017-08-20 16:50] VITALS: BP 114/70
[2017-08-20 20:00] VITALS: BP 132/76
--- NOTE | 2017-08-20 21:00 | NUR ---
RECEIVED PATIENT IN THE DAYS ROOM, WRITING. SHE IS A/O X 1, HOWEVER, SHE IS ABLE TO MAKE HER NEEDS KNOW. PT IS NEEDY, BUR EASILY REDIRECTABLE. NO AGGRESSIVE BX NOTED. NO A/H OR V/H NOTED AT THIS TIME. PT IS COMPLIANT WITH PLAN OF CARE, MEDICATION REGIMENT AND DIET.
[2017-08-20] MEDS: SIMVASTATIN 20 MG TABLET PO SCH (21:34)
[2017-08-20] MEDS: ARIPIPRAZOLE 2 MG TABLET PO SCH (21:34)
[2017-08-21] MEDS: TEMAZEPAM 7.5 MG CAPSULE PO PRN ×2 (00:05→21:38)
[2017-08-21] MEDS: PANTOPRAZOLE SODIUM 40 MG TABLET.DR PO SCH (06:33)
[2017-08-21 07:30] VITALS: BP 118/77
[2017-08-21] MEDS: ASPIRIN 325 MG TABLET PO SCH (08:43)
[2017-08-21] MEDS: busPIRone 10 MG TABLET PO SCH ×2 (08:43→16:12)
[2017-08-21] MEDS: MEMANTINE HCL 10 MG TABLET PO SCH ×2 (08:43→20:16)
[2017-08-21] MEDS: FERROUS SULFATE 325 MG TABEC PO SCH (08:44)
[2017-08-21] MEDS: METOPROLOL TARTRATE 25 MG TABLET PO SCH ×2 (08:44→20:16)
[2017-08-21] MEDS: DULOXETINE 60 MG CAPSULE.DR PO SCH ×2 (08:44→16:11)
[2017-08-21] MEDS: DOCUSATE SODIUM 100 MG CAPSULE PO SCH ×2 (08:44→16:12)
[2017-08-21] MEDS: PREGABALIN 25 MG CAPSULE PO SCH ×2 (08:50→20:15)
[2017-08-21] MEDS: BACLOFEN 20 MG TABLET PO SCH ×3 (08:51→16:53)
[2017-08-21] MEDS: OXYBUTYNIN XL 5 MG TABSR PO SCH (08:52)
[2017-08-21] MEDS: MIRALAX 17 GM POWD.PACK PO SCH (08:53)
[2017-08-21] MEDS: NITROFURANTOIN/NITROFURAN MAC 100 MG CAPSULE PO SCH ×2 (08:54→20:14)
[2017-08-21] MEDS: SERTRALINE HCL 50 MG TABLET PO SCH (08:55)
[2017-08-21] MEDS: CHLORHEXIDINE GLUCONATE 15 ML MOUTHWASH MM SCH ×2 (09:09→16:53)
[2017-08-21 17:02] VITALS: BP 114/72
[2017-08-21] MEDS: SIMVASTATIN 20 MG TABLET PO SCH (20:16)
[2017-08-21] MEDS ORDERED: ARIPIPRAZOLE 5 MG TABLET PO SCH (21:00)
[2017-08-21] MEDS ORDERED: ARIPIPRAZOLE 2 MG TABLET PO SCH (21:00)
[2017-08-21] MEDS: ACETAMINOPHEN 325 MG TABLET PO PRN (23:47)
[2017-08-22] MEDS: PANTOPRAZOLE SODIUM 40 MG TABLET.DR PO SCH (06:20)
[2017-08-22 07:53] VITALS: BP 152/88
[2017-08-22] MEDS: ASPIRIN 325 MG TABLET PO SCH (08:56)
[2017-08-22] MEDS: MIRALAX 17 GM POWD.PACK PO SCH (08:56)
[2017-08-22] MEDS: CHLORHEXIDINE GLUCONATE 15 ML MOUTHWASH MM SCH ×2 (08:56→16:25)
[2017-08-22] MEDS: SERTRALINE HCL 50 MG TABLET PO SCH (08:56)
[2017-08-22] MEDS: PREGABALIN 25 MG CAPSULE PO SCH (08:56)
[2017-08-22] MEDS: DOCUSATE SODIUM 100 MG CAPSULE PO SCH ×2 (08:56→16:25)
[2017-08-22] MEDS: FERROUS SULFATE 325 MG TABEC PO SCH (08:56)
[2017-08-22] MEDS: NITROFURANTOIN/NITROFURAN MAC 100 MG CAPSULE PO SCH ×2 (08:56→20:22)
[2017-08-22] MEDS: MEMANTINE HCL 10 MG TABLET PO SCH ×2 (08:57→20:23)
[2017-08-22] MEDS: BACLOFEN 20 MG TABLET PO SCH ×3 (08:57→16:25)
[2017-08-22] MEDS: DULOXETINE 60 MG CAPSULE.DR PO SCH ×2 (08:57→16:25)
[2017-08-22] MEDS: busPIRone 10 MG TABLET PO SCH ×2 (08:57→16:25)
[2017-08-22] MEDS: METOPROLOL TARTRATE 25 MG TABLET PO SCH ×2 (08:57→20:24)
[2017-08-22] MEDS: OXYBUTYNIN XL 5 MG TABSR PO SCH (08:59)
[2017-08-22] MEDS ORDERED: ARIPIPRAZOLE 10 MG TABLET ONE (20:07)
[2017-08-22] MEDS: ARIPIPRAZOLE 5 MG TABLET PO SCH (20:21)
[2017-08-22] MEDS: PREGABALIN 50 MG CAPSULE PO SCH (20:22)
[2017-08-22] MEDS: SIMVASTATIN 20 MG TABLET PO SCH (20:24)
[2017-08-22 21:14] VITALS: BP 142/81
[2017-08-22] MEDS: TEMAZEPAM 7.5 MG CAPSULE PO PRN (21:27)
[2017-08-23] MEDS: ACETAMINOPHEN 325 MG TABLET PO PRN ×2 (04:49→16:29)
[2017-08-23] MEDS: Z GUARD REMEDY PASTE 57 GM TUBE TOP PRN (05:19)
[2017-08-23] MEDS: PANTOPRAZOLE SODIUM 40 MG TABLET.DR PO SCH (06:18)
[2017-08-23 07:30] VITALS: BP 134/76
[2017-08-23] MEDS: busPIRone 10 MG TABLET PO SCH ×2 (09:04→16:20)
[2017-08-23] MEDS: ASPIRIN 325 MG TABLET PO SCH (09:04)
[2017-08-23] MEDS: DULOXETINE 60 MG CAPSULE.DR PO SCH ×2 (09:05→16:20)
[2017-08-23] MEDS: METOPROLOL TARTRATE 25 MG TABLET PO SCH ×2 (09:05→21:55)
[2017-08-23] MEDS: MEMANTINE HCL 10 MG TABLET PO SCH ×2 (09:05→21:53)
[2017-08-23] MEDS: DOCUSATE SODIUM 100 MG CAPSULE PO SCH ×2 (09:05→16:20)
[2017-08-23] MEDS: OXYBUTYNIN XL 5 MG TABSR PO SCH (09:06)
[2017-08-23] MEDS: FERROUS SULFATE 325 MG TABEC PO SCH ×2 (09:07→09:48)
[2017-08-23] MEDS: NITROFURANTOIN/NITROFURAN MAC 100 MG CAPSULE PO SCH ×2 (09:47→21:53)
[2017-08-23] MEDS: PREGABALIN 25 MG CAPSULE PO SCH (09:47)
[2017-08-23] MEDS: BACLOFEN 20 MG TABLET PO SCH ×3 (09:48→16:20)
[2017-08-23] MEDS: MIRALAX 17 GM POWD.PACK PO SCH (09:48)
[2017-08-23] MEDS: SERTRALINE HCL 50 MG TABLET PO SCH (09:48)
[2017-08-23] MEDS: CHLORHEXIDINE GLUCONATE 15 ML MOUTHWASH MM SCH ×2 (10:05→16:21)
[2017-08-23 17:02] VITALS: BP 128/77
[2017-08-23 20:03] VITALS: BP 123/75
[2017-08-23] MEDS: SIMVASTATIN 20 MG TABLET PO SCH (21:53)
[2017-08-23] MEDS: PREGABALIN 50 MG CAPSULE PO SCH (21:54)
[2017-08-23] MEDS: ARIPIPRAZOLE 5 MG TABLET PO SCH (21:54)
[2017-08-23] MEDS: TEMAZEPAM 7.5 MG CAPSULE PO PRN (23:06)
--- NOTE | 2017-08-24 00:53 | NUR ---
GPS: PATIENT C/O INSOMNIA. RESTORIL 7.5 MG PO GIVEN. Addendum: 08/25/17 at 0109 by CHENCHO LI LVN RESTORIL 7.5 MG PO GIVEN ON 08/25/2017 @ 0053 AM. NOT 08/24/2017.
[2017-08-24] MEDS: PANTOPRAZOLE SODIUM 40 MG TABLET.DR PO SCH (07:05)
[2017-08-24 08:00] VITALS: BP 144/93
[2017-08-24] MEDS: ASPIRIN 325 MG TABLET PO SCH (09:39)
[2017-08-24] MEDS: PREGABALIN 25 MG CAPSULE PO SCH (09:39)
[2017-08-24] MEDS: DOCUSATE SODIUM 100 MG CAPSULE PO SCH ×2 (09:39→18:14)
[2017-08-24] MEDS: NITROFURANTOIN/NITROFURAN MAC 100 MG CAPSULE PO SCH ×2 (09:39→20:30)
[2017-08-24] MEDS: DULOXETINE 60 MG CAPSULE.DR PO SCH ×2 (09:40→18:14)
[2017-08-24] MEDS: MEMANTINE HCL 10 MG TABLET PO SCH ×2 (09:40→20:30)
[2017-08-24] MEDS: busPIRone 10 MG TABLET PO SCH ×2 (09:40→18:14)
[2017-08-24] MEDS: BACLOFEN 20 MG TABLET PO SCH ×3 (09:40→18:14)
[2017-08-24] MEDS: SERTRALINE HCL 50 MG TABLET PO SCH (09:40)
[2017-08-24] MEDS: CHLORHEXIDINE GLUCONATE 15 ML MOUTHWASH MM SCH ×2 (09:41→18:15)
[2017-08-24] MEDS: METOPROLOL TARTRATE 25 MG TABLET PO SCH ×2 (09:41→20:31)
[2017-08-24] MEDS: OXYBUTYNIN XL 5 MG TABSR PO SCH (09:42)
[2017-08-24] MEDS: MIRALAX 17 GM POWD.PACK PO SCH (09:42)
[2017-08-24 16:00] VITALS: BP 110/69
[2017-08-24 20:01] VITALS: BP 123/70
[2017-08-24] MEDS: SIMVASTATIN 20 MG TABLET PO SCH (20:30)
[2017-08-24] MEDS: ARIPIPRAZOLE 5 MG TABLET PO SCH (20:30)
[2017-08-24] MEDS: PREGABALIN 50 MG CAPSULE PO SCH (20:31)
[2017-08-25] MEDS: TEMAZEPAM 7.5 MG CAPSULE PO PRN ×2 (00:52→23:05)
--- NOTE | 2017-08-25 01:53 | NUR ---
GPS: PATIENT SLEEPING EYE CLOSE. PRN FOR SLEEP EFFECTIVE.
[2017-08-25] MEDS: HYDROCODONE/APAP 5-325MG TABLET PO PRN ×2 (03:32→23:21)
--- NOTE | 2017-08-25 03:34 | NUR ---
GPS: PATIENT C/O PAIN. NORCO 5-325 MG PO 1 TAB GIVEN VIA CHARGE NURSE.
--- NOTE | 2017-08-25 04:34 | NUR ---
GPS: PATIENT STATED I AM FEELING BETTER NOW. PRN FOR PAIN EFFECTIVE.
[2017-08-25] MEDS: PANTOPRAZOLE SODIUM 40 MG TABLET.DR PO SCH (06:00)
[2017-08-25] MEDS: Z GUARD REMEDY PASTE 57 GM TUBE TOP PRN ×2 (06:20→20:06)
[2017-08-25 07:30] VITALS: BP 127/73
[2017-08-25] MEDS: MIRALAX 17 GM POWD.PACK PO SCH (08:51)
[2017-08-25] MEDS: MEMANTINE HCL 10 MG TABLET PO SCH ×2 (08:52→20:05)
[2017-08-25] MEDS: busPIRone 10 MG TABLET PO SCH ×2 (08:52→17:05)
[2017-08-25] MEDS: ASPIRIN 325 MG TABLET PO SCH (08:52)
[2017-08-25] MEDS: SERTRALINE HCL 50 MG TABLET PO SCH (08:52)
[2017-08-25] MEDS: DOCUSATE SODIUM 100 MG CAPSULE PO SCH ×2 (08:52→17:05)
[2017-08-25] MEDS: DULOXETINE 60 MG CAPSULE.DR PO SCH ×2 (08:52→17:05)
[2017-08-25] MEDS: NITROFURANTOIN/NITROFURAN MAC 100 MG CAPSULE PO SCH ×2 (08:52→20:04)
[2017-08-25] MEDS: FERROUS SULFATE 325 MG TABEC PO SCH (08:52)
[2017-08-25] MEDS: METOPROLOL TARTRATE 25 MG TABLET PO SCH ×2 (08:53→20:06)
[2017-08-25] MEDS: PREGABALIN 25 MG CAPSULE PO SCH (08:53)
[2017-08-25] MEDS: OXYBUTYNIN XL 5 MG TABSR PO SCH (08:56)
[2017-08-25] MEDS: BACLOFEN 20 MG TABLET PO SCH ×3 (08:56→17:05)
[2017-08-25] MEDS: CHLORHEXIDINE GLUCONATE 15 ML MOUTHWASH MM SCH ×2 (09:07→17:05)
[2017-08-25 15:00] VITALS: BP 130/64
[2017-08-25 20:04] VITALS: BP 113/75
[2017-08-25] MEDS: PREGABALIN 50 MG CAPSULE PO SCH (20:04)
[2017-08-25] MEDS: SIMVASTATIN 20 MG TABLET PO SCH (20:05)
[2017-08-25] MEDS: ARIPIPRAZOLE 5 MG TABLET PO SCH (20:05)
--- NOTE | 2017-08-25 23:16 | NUR ---
GPS: PATIENT C/O INSOMNIA. RESTORIL 7.5 MG PO GIVEN.
--- NOTE | 2017-08-25 23:22 | NUR ---
GPS: PATIENT C/O LEFT LEG PAIN. NORCO 5-325 MG PO GIVEN.
--- NOTE | 2017-08-26 00:16 | NUR ---
GPS: PATIENT SLEEPING EYE CLOSE. PRN EFFECTIVE FOR SLEEP.
--- NOTE | 2017-08-26 00:22 | NUR ---
GPS: PATIENT SLEEPING NO S/S OF PAIN AT THIA TIME. PAIN MEDS EFFECTIVE.
[2017-08-26] MEDS: PANTOPRAZOLE SODIUM 40 MG TABLET.DR PO SCH (06:12)
--- NOTE | 2017-08-26 06:37 | NUR ---
GPS: REMAIN UNCOOPERATIVE WITH CARE. COMPLIANT WITH AM PO MEDICATION. ASSISTED WITH ADL'S. SLEPT 4 HRA AFTER SLEEPING MEDICATION GIVEN. CONTINUE PLAN OF CARE.
[2017-08-26 07:30] VITALS: BP 133/69
[2017-08-26] MEDS: MIRALAX 17 GM POWD.PACK PO SCH (08:39)
[2017-08-26] MEDS: DULOXETINE 60 MG CAPSULE.DR PO SCH (08:44)
[2017-08-26] MEDS: DOCUSATE SODIUM 100 MG CAPSULE PO SCH (08:44)
[2017-08-26] MEDS: busPIRone 10 MG TABLET PO SCH (08:44)
[2017-08-26] MEDS: PREGABALIN 25 MG CAPSULE PO SCH (08:44)
[2017-08-26] MEDS: BACLOFEN 20 MG TABLET PO SCH (08:44)
[2017-08-26] MEDS: ASPIRIN 325 MG TABLET PO SCH (08:44)
[2017-08-26 08:45] VITALS: BP 133/69
[2017-08-26] MEDS: SERTRALINE HCL 50 MG TABLET PO SCH (08:45)
[2017-08-26] MEDS: METOPROLOL TARTRATE 25 MG TABLET PO SCH (08:45)
[2017-08-26] MEDS: MEMANTINE HCL 10 MG TABLET PO SCH (08:45)
[2017-08-26] MEDS: FERROUS SULFATE 325 MG TABEC PO SCH (08:46)
[2017-08-26] MEDS ORDERED: OXYBUTYNIN XL 5 MG TABSR PO SCH (09:00)
[2017-08-26] MEDS: CHLORHEXIDINE GLUCONATE 15 ML MOUTHWASH MM SCH (09:09)
[2017-08-26] MEDS: NITROFURANTOIN/NITROFURAN MAC 100 MG CAPSULE PO SCH (09:12)
--- NOTE | 2017-08-26 10:49 | NUR ---
Discharge Note: Patient will be discharged to [facility] Tuesday [[address] [place] [address]; [phone]] via [facility] van at 11 am. Spoke with Melanie at [facility] who is willing to provide transportation ([phone]). Called pt's daughter Augustina Wei ([phone]) and Jennifer Wei ([phone]) and left messages for both to inform them about discharge plans. Pt is aware and agreeable with discharge plans. Pt will follow up with her Primary Care Physician Dr. Nina Hodges [[phone]] and her psychiatrist Dr. Jackie Headley [[phone]]. Patient was provided referrals to [facility] [[address] [place] [address]; Tel. ] and was encouraged to present on 08/29/17, at 9:00am for intake to address her substance abuse. In addition to [facility] , and [facility] .
--- NOTE | 2017-08-26 11:49 | NUR ---
0800 pATIENT WILL BE DISCHARGED TODAY BACK TO [facility]. FACILITY WILL PROVIDE TRANSPORTATION.1115 PATIENT DISCHARGED TO ASSISTED , PICKED UP BY FACILITY TRANSPORTATION .PATIENT ALERT AND OX3 , DENIES SI/HI, NO HALLUCINATIONS NOTED
== END 2017-08-26 11:15 | DRG 885 ==
LOC: ER 17:04 → GPS 23:30
PROVIDERS: ADMIT Psychiatry & Neurology Psychiatry; ATTEND Internal Medicine
DX: F33.3 Major depressive disorder, recurrent, severe with psychotic symptoms (principal); F01.50 Vascular dementia, unspecified severity, without behavioral disturbance, psychotic disturbance, mood disturbance, and anxiety; I69.354 Hemiplegia and hemiparesis following cerebral infarction affecting left non-dominant side; G93.89 Other specified disorders of brain; E83.52 Hypercalcemia; I08.3 Combined rheumatic disorders of mitral, aortic and tricuspid valves; N39.0 Urinary tract infection, site not specified; G89.4 Chronic pain syndrome; E03.9 Hypothyroidism, unspecified; N32.81 Overactive bladder; Z79.82 Long term (current) use of aspirin; H40.9 Unspecified glaucoma; E78.5 Hyperlipidemia, unspecified; Z79.899 Other long term (current) drug therapy; Z87.440 Personal history of urinary (tract) infections; I10 Essential (primary) hypertension
CPT/HCPCS: 36415; 70030-TC; 70450; 71010; 83605; 84443; 85025; 85730; 87040; 87086; 87400; 93005; 97110; 97116; 97530; A4663; C1758; G0480; G0480-TC; J1200; J1630; J2060

== ENCOUNTER 2018-07-01 15:03 | Inpatient (IN) | payer MEDICARE, MEDICAID ==
[~2018-07-01] VITALS: Ht 167.6 cm; Wt 66.7 kg
[~2018-07-01 15:03] MED LIST changes: +ACET-73 PO; +BACL20TA PO; +BISA10SU8 RC; +BUSP30TA2 PO; -Buspirone Hcl PO; +CALC-36 PO; +CARB15DR2 EACHEYE; +CHLO473M2 MM; +CIPR500T5 PO; +COCO120O MC; +CRAN405C PO; +DICL100G16 TP; +DIPH25CA6 PO; +DOCU100C36 PO; +DULO60CA45 PO; +EUCA50OI5 TP; +GLUC10007 MM; +GLY/85CR TP; +HYDR-3974 PO; +HYDR-4384 PO; +HYDR30CR77 RC; +IBUP-1957 PO; +LOPE2CAP PO; +LOPE2TAB25 PO; +MEMA28CA PO; +MENT396L TP; +MENT71OI TP; +ORAJEL TP; +OXYB10TA4 PO; +PETR18JE3 TP; +PHEN-894 PO; +POLY17PO3 PO; -POLY17PO4 PO; +PREG75CA PO; +SELE325S2 TP; +SERT50TA12 PO; +SODI56GE DT; -Sertraline Hcl PO; +[UNRECOGNIZED DRUG - CODE] MC; +[UNRECOGNIZED DRUG - CODE] TP; +[UNRECOGNIZED DRUG - OTHER] TP; +[UNRECOGNIZED DRUG - SUPPLY] TP
[2018-07-01] MEDS ORDERED: ASPI-605 PO (16:29)
[2018-07-01] MEDS ORDERED: AMIT25TA9 PO (16:29)
[2018-07-01] MEDS ORDERED: BACL10TA PO (16:29)
[2018-07-01] MEDS ORDERED: SERT100T12 PO (16:29)
[2018-07-01] MEDS ORDERED: LORA0.5T PO ×2 (16:29)
[2018-07-01] MEDS ORDERED: MEMA10TA PO (16:29)
[2018-07-01] MEDS ORDERED: DIPH28.33 TP (16:29)
[2018-07-01] MEDS ORDERED: CLON0.5T12 PO (16:29)
[2018-07-01] MEDS ORDERED: GLUC10007 MM (16:29)
[2018-07-01] MEDS ORDERED: OMEP20TA5 PO (16:29)
[2018-07-01 17:26] LABS: BASOPHILS # (AUTO) 0.1 K/uL (0.0-8.0); BASOPHILS % (AUTO) 1.1 % (0.0-2.0); EOSINOPHILS # (AUTO) 0.8 K/uL (0.0-0.7); EOSINOPHILS % (AUTO) 11.3 % (0.0-7.0); HEMATOCRIT 33.9 % (31.2-41.9); HEMOGLOBIN 11.4 g/dL (10.9-14.3); LYMPHOCYTES # (AUTO) 1.4 K/uL (20.0-40.0); LYMPHOCYTES % (AUTO) 20.3 % (20.5-51.5); MEAN CORPUSCULAR HEMOGLOBIN 31.4 uug (24.7-32.8); MEAN CORPUSCULAR HGB CONC 34 g/dL (32.3-35.6); MEAN CORPUSCULAR VOLUME 93.1 fL (75.5-95.3); MONOCYTES # (AUTO) 0.5 K/uL (2.0-10.0); MONOCYTES % (AUTO) 7.5 % (0.0-11.0); NEUTROPHILS # (AUTO) 4.1 K/uL (1.8-8.9); NEUTROPHILS % (AUTO) 59.8 % (38.5-71.5); PLATELET COUNT (AUTO) 252 K/uL (179-408); RED BLOOD CELL COUNT(AUTO) 3.64 MIL/uL (3.63-4.92); WHITE BLOOD COUNT (AUTO) 6.9 K/uL (3.8-11.8)
[2018-07-01 17:37] LABS: ETHANOL < 3 MG/DL (0-0)
[2018-07-01 17:51] LABS: THYROID STIMULATING HORMONE 1.748 mIU/mL (0.358-3.740)
[2018-07-01 17:55] LABS: ALANINE AMINOTRANSFERASE 22 U/L (14-59); ALKALINE PHOSPHATASE 57 U/L (50-136); ASPARTATE AMINOTRANSFERASE 18 U/L (15-37); BILIRUBIN,DIRECT 0.1 mg/dL (0.0-0.2); BILIRUBIN,TOTAL 0.3 mg/dL (0.2-1.0); CARBON DIOXIDE 30 mmol/L (21-32); CREATINE KINASE, TOTAL 53 U/L (26-192); CREATININE 0.5 mg/dL (0.6-1.3); GLUCOSE 100 mg/dL (74-106); TOTAL PROTEIN, SERUM 7.3 g/dL (6.4-8.2); UREA NITROGEN, BLOOD 12 mg/dL (7-18)
[2018-07-01 17:56] LABS: ACETAMINOPHEN < 2.0 ug/mL (10-30)
[2018-07-01 17:59] LABS: CHLORIDE 96 mmol/L (98-107); POTASSIUM 4.8 mmol/L (3.5-5.1)
[2018-07-01 18:27] LABS: *BILIRUBIN,URIN NEGATIVE (NEGATIVE); *BLOOD, URINE NEGATIVE (NEGATIVE); *COLOR,URINE YELLOW (YELLOW); *KETONES,URINE NEGATIVE (NEGATIVE); *PROTEIN,URINE NEGATIVE (NEGATIVE); *UROBILINOGEN,URINE 0.2 E.U./dl (NORMAL); LEUKOCYTE ESTERASE ,URINE 3+ (NEGATIVE); NITRITE, URINE NEGATIVE (NEGATIVE); UGLUCOSE NEGATIVE (NEGATIVE)
[2018-07-01 18:28] LABS: *CLARITY,URINE SLIGHTLY HAZY (CLEAR)
[2018-07-01 18:34] LABS: *AMPHETAMINE, URINE NEGATIVE (NEGATIVE); *BARBITURATE, URINE NEGATIVE (NEGATIVE); *CANNABINOID, URINE NEGATIVE (NEGATIVE); *COCCAINE, URINE NEGATIVE (NEGATIVE); *OPIATE, URINE POSITIVE (NEGATIVE); *PHENCYCLIDINE SCREEN,URINE NEGATIVE (NEGATIVE); BACTERIA,URINE MODERATE /HPF (NONE SEEN); RBC,URINE 0-3 /HPF (0-3); SQUAMOUS EPITHELIAL CELL,UR FEW /HPF (NONE SEEN)
[2018-07-01] MEDS ORDERED: NITROFURANTOIN/NITROFURAN MAC 100 MG CAPSULE PO ONE (20:45)
[2018-07-01] MEDS ORDERED: NITROFURANTOIN/NITROFURAN MAC 100 MG CAPSULE ONE (20:45)
[2018-07-01] MEDS ORDERED: CLONAZEPAM 0.5 MG TABLET PO SCH (22:15)
[2018-07-01] MEDS ORDERED: MAGNESIUM HYDROXIDE 30 ML LIQUID UDC PO PRN (22:15)
[2018-07-01] MEDS ORDERED: MAG HYDROX/AL HYDROX/SIMETH 30 ML LIQUID UDC PO PRN (22:15)
[2018-07-02] MEDS: PANTOPRAZOLE SODIUM 40 MG TABLET.DR PO SCH (06:43)
[2018-07-02 07:30] VITALS: BP 147/91
[2018-07-02] MEDS: ASPIRIN EC 81 MG TABLET.DR PO SCH (08:35)
[2018-07-02] MEDS: METOPROLOL TARTRATE 25 MG TABLET PO SCH ×2 (08:37→20:23)
[2018-07-02] MEDS: DOCUSATE SODIUM 100 MG CAPSULE PO SCH ×2 (08:38→16:50)
[2018-07-02] MEDS: MIRALAX 17 GM POWD.PACK PO SCH (08:38)
[2018-07-02] MEDS: BACLOFEN 10 MG TABLET PO SCH ×2 (08:42→16:50)
[2018-07-02] MEDS ORDERED: MEMANTINE HCL 10 MG TABLET PO SCH (09:00)
[2018-07-02] MEDS: busPIRone 10 MG TABLET PO SCH ×2 (11:36→17:38)
[2018-07-02] MEDS: ACETAMINOPHEN 325 MG TABLET PO PRN (11:36)
[2018-07-02] MEDS: SERTRALINE HCL 100 MG TABLET PO SCH (11:37)
[2018-07-02] MEDS: DULOXETINE 60 MG CAPSULE.DR PO SCH ×2 (11:38→16:50)
[2018-07-02] MEDS: ARIPIPRAZOLE 5 MG TABLET PO SCH (11:40)
[2018-07-02 16:00] VITALS: BP 109/69
[2018-07-02 20:58] VITALS: BP 147/82
[2018-07-02] MEDS: CEPHALEXIN MONOHYDRATE 250 MG CAPSULE PO SCH (21:03)
[2018-07-02] MEDS ORDERED: CEPHALEXIN MONOHYDRATE 125 MG/5 ML SUSPENSION 100ML NG SCH (22:00)
[2018-07-02] MEDS: TEMAZEPAM 7.5 MG CAPSULE PO PRN (22:09)
[2018-07-03] MEDS: PANTOPRAZOLE SODIUM 40 MG TABLET.DR PO SCH (06:08)
[2018-07-03] MEDS: CEPHALEXIN MONOHYDRATE 250 MG CAPSULE PO SCH ×3 (06:08→21:13)
[2018-07-03 08:00] VITALS: BP 136/68
[2018-07-03] MEDS: MIRALAX 17 GM POWD.PACK PO SCH ×2 (09:00→09:05)
[2018-07-03] MEDS: DOCUSATE SODIUM 100 MG CAPSULE PO SCH ×3 (09:00→17:00)
[2018-07-03] MEDS: SERTRALINE HCL 100 MG TABLET PO SCH (09:05)
[2018-07-03] MEDS: ASPIRIN EC 81 MG TABLET.DR PO SCH (09:05)
[2018-07-03] MEDS: ARIPIPRAZOLE 5 MG TABLET PO SCH (09:05)
[2018-07-03] MEDS: METOPROLOL TARTRATE 25 MG TABLET PO SCH ×2 (09:06→20:19)
[2018-07-03] MEDS: BACLOFEN 10 MG TABLET PO SCH ×2 (09:07→17:27)
[2018-07-03] MEDS: DULOXETINE 60 MG CAPSULE.DR PO SCH ×2 (09:07→17:28)
[2018-07-03] MEDS: busPIRone 10 MG TABLET PO SCH ×2 (09:33→17:27)
[2018-07-03] MEDS: CLONAZEPAM 0.5 MG TABLET PO PRN (14:21)
[2018-07-03 16:25] VITALS: BP 120/80
[2018-07-03] MEDS: PREGABALIN 50 MG CAPSULE PO SCH (17:48)
[2018-07-03] MEDS ORDERED: PREGABALIN 100 MG CAPSULE PO SCH (18:00)
[2018-07-03] MEDS ORDERED: PREGABALIN 25 MG CAPSULE PO SCH (18:00)
[2018-07-03 20:00] VITALS: BP 132/84
[2018-07-03] MEDS: TEMAZEPAM 7.5 MG CAPSULE PO PRN (21:14)
[2018-07-04] MEDS: CLONAZEPAM 0.5 MG TABLET PO PRN (00:39)
[2018-07-04] MEDS: PANTOPRAZOLE SODIUM 40 MG TABLET.DR PO SCH (06:07)
[2018-07-04] MEDS: CEPHALEXIN MONOHYDRATE 250 MG CAPSULE PO SCH ×3 (06:07→21:21)
[2018-07-04 07:30] VITALS: BP 106/60
[2018-07-04] MEDS: busPIRone 10 MG TABLET PO SCH ×2 (08:37→17:13)
[2018-07-04] MEDS: ASPIRIN EC 81 MG TABLET.DR PO SCH (08:37)
[2018-07-04] MEDS: ARIPIPRAZOLE 5 MG TABLET PO SCH ×2 (08:38→21:00)
[2018-07-04] MEDS: BACLOFEN 10 MG TABLET PO SCH ×2 (08:38→17:24)
[2018-07-04] MEDS: DOCUSATE SODIUM 100 MG CAPSULE PO SCH ×2 (08:38→17:13)
[2018-07-04] MEDS: DULOXETINE 60 MG CAPSULE.DR PO SCH ×2 (08:39→17:24)
[2018-07-04] MEDS: SERTRALINE HCL 100 MG TABLET PO SCH (08:43)
[2018-07-04] MEDS: MIRALAX 17 GM POWD.PACK PO SCH (08:43)
[2018-07-04] MEDS: METOPROLOL TARTRATE 25 MG TABLET PO SCH ×2 (09:00→21:00)
[2018-07-04] MEDS: PREGABALIN 25 MG CAPSULE PO SCH (09:04)
[2018-07-04 16:11] VITALS: BP 95/52
[2018-07-04] MEDS: PREGABALIN 50 MG CAPSULE PO SCH (17:24)
[2018-07-04 20:16] VITALS: BP 84/47
[2018-07-05] MEDS: PANTOPRAZOLE SODIUM 40 MG TABLET.DR PO SCH (06:09)
[2018-07-05] MEDS: CEPHALEXIN MONOHYDRATE 250 MG CAPSULE PO SCH ×3 (06:09→22:04)
[2018-07-05 07:37] LABS: BASOPHILS % (AUTO) 0.5 % (0.0-2.0); EOSINOPHILS # (AUTO) 0.6 K/uL (0.0-0.7); EOSINOPHILS % (AUTO) 11.2 % (0.0-7.0); HEMATOCRIT 29.7 % (31.2-41.9); HEMOGLOBIN 10.1 g/dL (10.9-14.3); LYMPHOCYTES # (AUTO) 1.2 K/uL (20.0-40.0); LYMPHOCYTES % (AUTO) 23.1 % (20.5-51.5); MEAN CORPUSCULAR HEMOGLOBIN 31.7 uug (24.7-32.8); MEAN CORPUSCULAR HGB CONC 34 g/dL (32.3-35.6); MEAN CORPUSCULAR VOLUME 93.3 fL (75.5-95.3); MONOCYTES # (AUTO) 0.5 K/uL (2.0-10.0); MONOCYTES % (AUTO) 10.5 % (0.0-11.0); NEUTROPHILS # (AUTO) 2.8 K/uL (1.8-8.9); NEUTROPHILS % (AUTO) 54.7 % (38.5-71.5); PLATELET COUNT (AUTO) 212 K/uL (179-408); RED BLOOD CELL COUNT(AUTO) 3.18 MIL/uL (3.63-4.92); WHITE BLOOD COUNT (AUTO) 5.1 K/uL (3.8-11.8)
[2018-07-05 08:04] LABS: ALANINE AMINOTRANSFERASE 19 U/L (14-59); ALKALINE PHOSPHATASE 45 U/L (50-136); ASPARTATE AMINOTRANSFERASE 18 U/L (15-37); BILIRUBIN,TOTAL 0.5 mg/dL (0.2-1.0); CARBON DIOXIDE 28 mmol/L (21-32); CHLORIDE 97 mmol/L (98-107); CREATININE 0.6 mg/dL (0.6-1.3); GLUCOSE 104 mg/dL (74-106); MAGNESIUM 1.8 mg/dL (1.8-2.4); PHOSPHOROUS 4.1 mg/dL (2.5-4.9); POTASSIUM 4.6 mmol/L (3.5-5.1); TOTAL PROTEIN, SERUM 6.2 g/dL (6.4-8.2); UREA NITROGEN, BLOOD 13 mg/dL (7-18)
[2018-07-05] MEDS: ASPIRIN EC 81 MG TABLET.DR PO SCH (08:31)
[2018-07-05] MEDS: DOCUSATE SODIUM 100 MG CAPSULE PO SCH ×2 (08:31→17:00)
[2018-07-05] MEDS: busPIRone 10 MG TABLET PO SCH ×2 (08:31→17:08)
[2018-07-05] MEDS: ARIPIPRAZOLE 5 MG TABLET PO SCH ×2 (08:31→20:53)
[2018-07-05] MEDS: METOPROLOL TARTRATE 25 MG TABLET PO SCH ×2 (08:32→20:52)
[2018-07-05] MEDS: BACLOFEN 10 MG TABLET PO SCH ×2 (08:33→17:08)
[2018-07-05] MEDS: DULOXETINE 60 MG CAPSULE.DR PO SCH ×2 (08:33→17:08)
[2018-07-05] MEDS: MIRALAX 17 GM POWD.PACK PO SCH (08:34)
[2018-07-05] MEDS: PREGABALIN 25 MG CAPSULE PO SCH (08:37)
[2018-07-05] MEDS: SERTRALINE HCL 100 MG TABLET PO SCH (08:37)
[2018-07-05 08:48] VITALS: BP 107/69
[2018-07-05 15:34] VITALS: BP 107/70
[2018-07-05] MEDS: PREGABALIN 50 MG CAPSULE PO SCH (17:11)
[2018-07-05 20:55] VITALS: BP 107/68
[2018-07-05] MEDS: TEMAZEPAM 7.5 MG CAPSULE PO PRN (21:55)
[2018-07-06] MEDS: ACETAMINOPHEN 325 MG TABLET PO PRN (02:09)
[2018-07-06] MEDS: PANTOPRAZOLE SODIUM 40 MG TABLET.DR PO SCH (06:00)
[2018-07-06] MEDS: CEPHALEXIN MONOHYDRATE 250 MG CAPSULE PO SCH ×3 (06:00→21:28)
[2018-07-06 07:30] VITALS: BP 130/70
[2018-07-06] MEDS: ARIPIPRAZOLE 5 MG TABLET PO SCH ×2 (08:22→20:11)
[2018-07-06] MEDS: busPIRone 10 MG TABLET PO SCH ×2 (08:23→16:56)
[2018-07-06] MEDS: SERTRALINE HCL 100 MG TABLET PO SCH (08:23)
[2018-07-06] MEDS: ASPIRIN EC 81 MG TABLET.DR PO SCH (08:23)
[2018-07-06] MEDS: DOCUSATE SODIUM 100 MG CAPSULE PO SCH ×2 (08:23→16:56)
[2018-07-06] MEDS: BACLOFEN 10 MG TABLET PO SCH ×2 (08:25→16:56)
[2018-07-06] MEDS: METOPROLOL TARTRATE 25 MG TABLET PO SCH ×2 (08:25→20:12)
[2018-07-06] MEDS: DULOXETINE 60 MG CAPSULE.DR PO SCH ×2 (08:25→16:56)
[2018-07-06] MEDS: MIRALAX 17 GM POWD.PACK PO SCH (08:34)
[2018-07-06] MEDS: PREGABALIN 25 MG CAPSULE PO SCH (09:27)
[2018-07-06 16:22] VITALS: BP 128/82
[2018-07-06] MEDS: PREGABALIN 50 MG CAPSULE PO SCH (17:34)
[2018-07-06 19:49] VITALS: BP 109/56
[2018-07-07] MEDS: ACETAMINOPHEN 325 MG TABLET PO PRN (02:00)
[2018-07-07] MEDS: TEMAZEPAM 7.5 MG CAPSULE PO PRN ×2 (02:00→21:04)
[2018-07-07] MEDS: CLONAZEPAM 0.5 MG TABLET PO PRN (06:02)
[2018-07-07] MEDS: PANTOPRAZOLE SODIUM 40 MG TABLET.DR PO SCH (06:02)
[2018-07-07] MEDS: CEPHALEXIN MONOHYDRATE 250 MG CAPSULE PO SCH ×3 (06:02→21:04)
[2018-07-07 07:30] VITALS: BP 113/75
[2018-07-07] MEDS: METOPROLOL TARTRATE 25 MG TABLET PO SCH ×2 (09:00→20:00)
[2018-07-07] MEDS: MIRALAX 17 GM POWD.PACK PO SCH (09:59)
[2018-07-07] MEDS: SERTRALINE HCL 100 MG TABLET PO SCH (10:00)
[2018-07-07] MEDS: DOCUSATE SODIUM 100 MG CAPSULE PO SCH ×2 (10:00→17:05)
[2018-07-07] MEDS: busPIRone 10 MG TABLET PO SCH ×2 (10:00→17:04)
[2018-07-07] MEDS: ARIPIPRAZOLE 5 MG TABLET PO SCH ×2 (10:00→17:04)
[2018-07-07] MEDS: DULOXETINE 60 MG CAPSULE.DR PO SCH ×2 (10:01→17:05)
[2018-07-07] MEDS: ASPIRIN EC 81 MG TABLET.DR PO SCH (10:01)
[2018-07-07] MEDS: BACLOFEN 10 MG TABLET PO SCH ×2 (10:01→17:04)
[2018-07-07] MEDS: PREGABALIN 25 MG CAPSULE PO SCH (10:28)
[2018-07-07 16:05] VITALS: BP 109/69
[2018-07-07] MEDS: PREGABALIN 50 MG CAPSULE PO SCH (17:05)
[2018-07-07 20:04] VITALS: BP 131/72
[2018-07-08] MEDS: CEPHALEXIN MONOHYDRATE 250 MG CAPSULE PO SCH (06:11)
[2018-07-08] MEDS: PANTOPRAZOLE SODIUM 40 MG TABLET.DR PO SCH (06:33)
[2018-07-08 07:30] VITALS: BP 150/82
[2018-07-08] MEDS: busPIRone 10 MG TABLET PO SCH ×2 (08:20→18:07)
[2018-07-08] MEDS: PREGABALIN 25 MG CAPSULE PO SCH (08:20)
[2018-07-08] MEDS: DULOXETINE 60 MG CAPSULE.DR PO SCH ×2 (08:21→18:08)
[2018-07-08] MEDS: ASPIRIN EC 81 MG TABLET.DR PO SCH (08:21)
[2018-07-08] MEDS: DOCUSATE SODIUM 100 MG CAPSULE PO SCH ×2 (08:21→18:08)
[2018-07-08] MEDS: SERTRALINE HCL 100 MG TABLET PO SCH (08:21)
[2018-07-08] MEDS: MIRALAX 17 GM POWD.PACK PO SCH (08:21)
[2018-07-08] MEDS: BACLOFEN 10 MG TABLET PO SCH ×2 (08:21→18:07)
[2018-07-08] MEDS: METOPROLOL TARTRATE 25 MG TABLET PO SCH ×2 (08:21→22:21)
[2018-07-08] MEDS: ARIPIPRAZOLE 5 MG TABLET PO SCH ×3 (10:16→18:08)
[2018-07-08] MEDS: diphenhydrAMINE 1% CREAM 28.3 GM TUBE TP PRN (11:18)
[2018-07-08 16:05] VITALS: BP 100/53
[2018-07-08] MEDS: PREGABALIN 50 MG CAPSULE PO SCH (18:07)
[2018-07-08 20:06] VITALS: BP 121/61
[2018-07-08] MEDS: TEMAZEPAM 7.5 MG CAPSULE PO PRN ×2 (22:13→23:14)
[2018-07-08] MEDS: HYDROCODONE/APAP 5-325MG TABLET PO PRN (22:15)
[2018-07-09] MEDS: CLONAZEPAM 0.5 MG TABLET PO PRN (01:01)
[2018-07-09] MEDS: PANTOPRAZOLE SODIUM 40 MG TABLET.DR PO SCH (06:56)
[2018-07-09 08:00] VITALS: BP 108/69
[2018-07-09] MEDS: PREGABALIN 25 MG CAPSULE PO SCH (08:56)
[2018-07-09] MEDS: DOCUSATE SODIUM 100 MG CAPSULE PO SCH ×2 (08:56→17:43)
[2018-07-09] MEDS: ARIPIPRAZOLE 5 MG TABLET PO SCH ×3 (08:57→17:43)
[2018-07-09] MEDS: BACLOFEN 10 MG TABLET PO SCH ×2 (08:57→17:43)
[2018-07-09] MEDS: SERTRALINE HCL 100 MG TABLET PO SCH (08:57)
[2018-07-09] MEDS: DULOXETINE 60 MG CAPSULE.DR PO SCH ×2 (08:57→17:43)
[2018-07-09] MEDS: ASPIRIN EC 81 MG TABLET.DR PO SCH (08:58)
[2018-07-09] MEDS: METOPROLOL TARTRATE 25 MG TABLET PO SCH ×2 (08:58→20:46)
[2018-07-09] MEDS: MIRALAX 17 GM POWD.PACK PO SCH (09:01)
[2018-07-09] MEDS: busPIRone 10 MG TABLET PO SCH ×2 (10:00→17:43)
[2018-07-09 16:00] VITALS: BP 113/72
[2018-07-09] MEDS: PREGABALIN 50 MG CAPSULE PO SCH (17:43)
[2018-07-09 20:09] VITALS: BP 128/76
[2018-07-09] MEDS: TEMAZEPAM 7.5 MG CAPSULE PO PRN ×2 (20:46→20:48)
[2018-07-09] MEDS: HYDROCODONE/APAP 5-325MG TABLET PO PRN (20:47)
[2018-07-10] MEDS: PANTOPRAZOLE SODIUM 40 MG TABLET.DR PO SCH (06:21)
[2018-07-10 07:24] LABS: BASOPHILS % (AUTO) 0.5 % (0.0-2.0); EOSINOPHILS # (AUTO) 0.5 K/uL (0.0-0.7); EOSINOPHILS % (AUTO) 12.3 % (0.0-7.0); HEMATOCRIT 29.3 % (31.2-41.9); HEMOGLOBIN 10.1 g/dL (10.9-14.3); LYMPHOCYTES # (AUTO) 1.2 K/uL (20.0-40.0); LYMPHOCYTES % (AUTO) 26.7 % (20.5-51.5); MEAN CORPUSCULAR HEMOGLOBIN 32.2 uug (24.7-32.8); MEAN CORPUSCULAR HGB CONC 34 g/dL (32.3-35.6); MEAN CORPUSCULAR VOLUME 93.6 fL (75.5-95.3); MONOCYTES # (AUTO) 0.4 K/uL (2.0-10.0); MONOCYTES % (AUTO) 9.5 % (0.0-11.0); NEUTROPHILS # (AUTO) 2.3 K/uL (1.8-8.9); PLATELET COUNT (AUTO) 241 K/uL (179-408); RED BLOOD CELL COUNT(AUTO) 3.13 MIL/uL (3.63-4.92); WHITE BLOOD COUNT (AUTO) 4.4 K/uL (3.8-11.8)
[2018-07-10 07:30] VITALS: BP 130/74
[2018-07-10 07:59] LABS: ALANINE AMINOTRANSFERASE 27 U/L (14-59); ALKALINE PHOSPHATASE 46 U/L (50-136); ASPARTATE AMINOTRANSFERASE 25 U/L (15-37); BILIRUBIN,TOTAL 0.4 mg/dL (0.2-1.0); CARBON DIOXIDE 29 mmol/L (21-32); CHLORIDE 95 mmol/L (98-107); CREATININE 0.6 mg/dL (0.6-1.3); GLUCOSE 101 mg/dL (74-106); MAGNESIUM 1.8 mg/dL (1.8-2.4); PHOSPHOROUS 4.1 mg/dL (2.5-4.9); POTASSIUM 3.9 mmol/L (3.5-5.1); TOTAL PROTEIN, SERUM 6.9 g/dL (6.4-8.2); UREA NITROGEN, BLOOD 11 mg/dL (7-18)
[2018-07-10] MEDS: SERTRALINE HCL 100 MG TABLET PO SCH (08:37)
[2018-07-10] MEDS: DOCUSATE SODIUM 100 MG CAPSULE PO SCH ×2 (08:37→16:35)
[2018-07-10] MEDS: MIRALAX 17 GM POWD.PACK PO SCH (08:37)
[2018-07-10] MEDS: DULOXETINE 60 MG CAPSULE.DR PO SCH ×2 (08:37→16:33)
[2018-07-10] MEDS: busPIRone 10 MG TABLET PO SCH ×2 (08:38→16:32)
[2018-07-10] MEDS: BACLOFEN 10 MG TABLET PO SCH ×2 (08:38→16:34)
[2018-07-10] MEDS: PREGABALIN 25 MG CAPSULE PO SCH (08:38)
[2018-07-10] MEDS: ARIPIPRAZOLE 5 MG TABLET PO SCH ×3 (08:38→16:32)
[2018-07-10] MEDS: ASPIRIN EC 81 MG TABLET.DR PO SCH (08:38)
[2018-07-10] MEDS: METOPROLOL TARTRATE 25 MG TABLET PO SCH ×2 (08:38→21:10)
[2018-07-10] MEDS: HYDROCODONE/APAP 5-325MG TABLET PO PRN (08:48)
[2018-07-10] MEDS: CLONAZEPAM 0.5 MG TABLET PO PRN (09:39)
[2018-07-10] MEDS: diphenhydrAMINE 1% CREAM 28.3 GM TUBE TP PRN (16:26)
[2018-07-10 16:49] VITALS: BP 116/59
[2018-07-10] MEDS: PREGABALIN 50 MG CAPSULE PO SCH (17:04)
[2018-07-10 20:31] VITALS: BP 100/55
[2018-07-10] MEDS: QUETIAPINE FUMARATE 25 MG TABLET PO SCH (21:11)
[2018-07-10] MEDS: TEMAZEPAM 7.5 MG CAPSULE PO PRN (21:11)
[2018-07-11] MEDS: PANTOPRAZOLE SODIUM 40 MG TABLET.DR PO SCH (06:31)
[2018-07-11 07:30] VITALS: BP 144/85
[2018-07-11] MEDS: MIRALAX 17 GM POWD.PACK PO SCH (08:42)
[2018-07-11] MEDS: ASPIRIN EC 81 MG TABLET.DR PO SCH (08:43)
[2018-07-11] MEDS: PREGABALIN 25 MG CAPSULE PO SCH (08:43)
[2018-07-11] MEDS: ARIPIPRAZOLE 5 MG TABLET PO SCH ×2 (08:43→12:07)
[2018-07-11] MEDS: SERTRALINE HCL 100 MG TABLET PO SCH (08:44)
[2018-07-11] MEDS: QUETIAPINE FUMARATE 25 MG TABLET PO SCH (08:44)
[2018-07-11] MEDS: METOPROLOL TARTRATE 25 MG TABLET PO SCH (08:44)
[2018-07-11] MEDS: busPIRone 10 MG TABLET PO SCH (08:45)
[2018-07-11] MEDS: DOCUSATE SODIUM 100 MG CAPSULE PO SCH (08:45)
[2018-07-11] MEDS: DULOXETINE 60 MG CAPSULE.DR PO SCH (08:48)
[2018-07-11] MEDS: BACLOFEN 10 MG TABLET PO SCH (08:48)
[2018-07-11 17:01] VITALS: BP 100/55
== END 2018-07-11 17:00 | disposition home health service (06) | DRG 885 ==
LOC: ER 15:03 → GPS 21:14
PROVIDERS: ADMIT Psychiatry & Neurology Psychiatry; ATTEND Registered Nurse
DX: F33.3 Major depressive disorder, recurrent, severe with psychotic symptoms (principal); F01.50 Vascular dementia, unspecified severity, without behavioral disturbance, psychotic disturbance, mood disturbance, and anxiety; F11.20 Opioid dependence, uncomplicated; I69.354 Hemiplegia and hemiparesis following cerebral infarction affecting left non-dominant side; N39.0 Urinary tract infection, site not specified; E87.1 Hypo-osmolality and hyponatremia; J98.11 Atelectasis; E03.9 Hypothyroidism, unspecified; G89.4 Chronic pain syndrome; N32.81 Overactive bladder; E78.5 Hyperlipidemia, unspecified; H40.9 Unspecified glaucoma; D64.9 Anemia, unspecified; I08.1 Rheumatic disorders of both mitral and tricuspid valves; B96.89 Other specified bacterial agents as the cause of diseases classified elsewhere; G93.89 Other specified disorders of brain; F41.9 Anxiety disorder, unspecified; I11.9 Hypertensive heart disease without heart failure; Z87.440 Personal history of urinary (tract) infections; D69.6 Thrombocytopenia, unspecified
CPT/HCPCS: 36415; 70030-TC; 70450; 71045; 80307; 83605; 83735; 84100; 84443; 85025; 85730; 86592; 87040; 87086; 93005; 97110; 97112; 97116; 97530; A4663; G0480; G0480-TC